=== PATIENT | female | born 1965 | race Caucasian/White ===

== ENCOUNTER 2021-06-13 16:58 | Emergency (ER) | payer OTHER ==
[~2021-06-13] VITALS: Ht 154.9 cm; Wt 57.1 kg
--- OUTSIDE RECORDS SUMMARY | 2021-06-13 17:03 | CCD ---
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 Name Role Phone Sami Peter DO Unavailable Unavailable Sami Peteron DO Unavailable Unavailable Sami Peteron DO Unavailable Unavailable Sami Peteron DO Unavailable Unavailable Sami Peter Hardy DO Unavailable Unavailable Sami Peter Hardy DO Unavailable Unavailable Sami Peter Hardy DO Unavailable Unavailable Sami Peter Hardy DO Unavailable Unavailable Sami Peter Hardy DO Unavailable Unavailable Sami Peter Hardy DO Unavailable Unavailable PeterSami Hardy DO Unavailable Unavailable PeterSami Hardy DO Unavailable Unavailable PeterSami Hardy DO Unavailable Unavailable Peter B Hardy DO Unavailable Unavailable Hector, H Crystal AVIATION ELECTRONIC WARFARE OPERATOR Unavailable Unavailable Hector, H Crystal AVIATION ELECTRONIC WARFARE OPERATOR Unavailable Unavailable Hector, H Crystal AVIATION ELECTRONIC WARFARE OPERATOR Unavailable Unavailable Hector, H Crystal AVIATION ELECTRONIC WARFARE OPERATOR Unavailable Unavailable Hector, H Crystal AVIATION ELECTRONIC WARFARE OPERATOR Unavailable Unavailable Hector, H Crystal AVIATION ELECTRONIC WARFARE OPERATOR Unavailable Unavailable Hector, H Crystal AVIATION ELECTRONIC WARFARE OPERATOR Unavailable Unavailable Hector, H Crystal AVIATION ELECTRONIC WARFARE OPERATOR Unavailable Unavailable Hector, H Crystal AVIATION ELECTRONIC WARFARE OPERATOR Unavailable Unavailable Hector, H Crystal AVIATION ELECTRONIC WARFARE OPERATOR Unavailable Unavailable Hector, H Crystal AVIATION ELECTRONIC WARFARE OPERATOR Unavailable Unavailable Hector, H Crystal AVIATION ELECTRONIC WARFARE OPERATOR Unavailable Unavailable Hector, H Crystal AVIATION ELECTRONIC WARFARE OPERATOR Unavailable Unavailable Hector, H Crystal AVIATION ELECTRONIC WARFARE OPERATOR Unavailable Unavailable Hector, H Crystal AVIATION ELECTRONIC WARFARE OPERATOR Unavailable Unavailable Hector, H Crystal AVIATION ELECTRONIC WARFARE OPERATOR Unavailable Unavailable Hector, H Crystal AVIATION ELECTRONIC WARFARE OPERATOR Unavailable Unavailable Hector, H Crystal AVIATION ELECTRONIC WARFARE OPERATOR Unavailable Unavailable Hector, H Crystal AVIATION ELECTRONIC WARFARE OPERATOR Unavailable Unavailable Hector, H Crystal AVIATION ELECTRONIC WARFARE OPERATOR Unavailable Unavailable Hector, H Crystal AVIATION ELECTRONIC WARFARE OPERATOR Unavailable Unavailable Hector, H Crystal AVIATION ELECTRONIC WARFARE OPERATOR Unavailable Unavailable Hector, H Crystal AVIATION ELECTRONIC WARFARE OPERATOR Unavailable Unavailable Hector, H Crystal AVIATION ELECTRONIC WARFARE OPERATOR Unavailable Unavailable Hector, H Crystal AVIATION ELECTRONIC WARFARE OPERATOR Unavailable Unavailable Hector, H Crystal AVIATION ELECTRONIC WARFARE OPERATOR Unavailable Unavailable Hector, H Crystal AVIATION ELECTRONIC WARFARE OPERATOR Unavailable Unavailable Hector, H Crystal AVIATION ELECTRONIC WARFARE OPERATOR Unavailable Unavailable Hector, H Crystal AVIATION ELECTRONIC WARFARE OPERATOR Unavailable Unavailable Hector, H Crystal AVIATION ELECTRONIC WARFARE OPERATOR Unavailable Unavailable Hector, H Crystal AVIATION ELECTRONIC WARFARE OPERATOR Unavailable Unavailable Hector, H Crystal AVIATION ELECTRONIC WARFARE OPERATOR Unavailable Unavailable Hector, H Crystal AVIATION ELECTRONIC WARFARE OPERATOR Unavailable Unavailable Hector, H Crystal AVIATION ELECTRONIC WARFARE OPERATOR Unavailable Unavailable Hector, H Crystal AVIATION ELECTRONIC WARFARE OPERATOR Unavailable Unavailable Hector, H Crystal AVIATION ELECTRONIC WARFARE OPERATOR Unavailable Unavailable Hector, H Crystal AVIATION ELECTRONIC WARFARE OPERATOR Unavailable Unavailable Hector, H Crystal AVIATION ELECTRONIC WARFARE OPERATOR Unavailable Unavailable Hector, H Crystal AVIATION ELECTRONIC WARFARE OPERATOR Unavailable Unavailable Hector, H Crystal AVIATION ELECTRONIC WARFARE OPERATOR Unavailable Unavailable Hector, H Crystal AVIATION ELECTRONIC WARFARE OPERATOR Unavailable Unavailable Hector, H Crystal AVIATION ELECTRONIC WARFARE OPERATOR Unavailable Unavailable Hector, H Crystal AVIATION ELECTRONIC WARFARE OPERATOR Unavailable Unavailable Hector, H Crystal AVIATION ELECTRONIC WARFARE OPERATOR Unavailable Unavailable Hector, H Crystal AVIATION ELECTRONIC WARFARE OPERATOR Unavailable Unavailable Hector, H Crystal AVIATION ELECTRONIC WARFARE OPERATOR Unavailable Unavailable Hector, H Crystal AVIATION ELECTRONIC WARFARE OPERATOR Unavailable Unavailable Hector, H Crystal AVIATION ELECTRONIC WARFARE OPERATOR Unavailable Unavailable Hector, H Crystal AVIATION ELECTRONIC WARFARE OPERATOR Unavailable Unavailable Hector, H Crystal AVIATION ELECTRONIC WARFARE OPERATOR Unavailable Unavailable Hector, H Crystal AVIATION ELECTRONIC WARFARE OPERATOR Unavailable Unavailable Hector, H Crystal AVIATION ELECTRONIC WARFARE OPERATOR Unavailable Unavailable Hector, H Crystal AVIATION ELECTRONIC WARFARE OPERATOR Unavailable Unavailable Hector, H Crystal AVIATION ELECTRONIC WARFARE OPERATOR Unavailable Unavailable Hector, H Crystal AVIATION ELECTRONIC WARFARE OPERATOR Unavailable Unavailable Hector, H Crystal AVIATION ELECTRONIC WARFARE OPERATOR Unavailable Unavailable Hector, H Crystal AVIATION ELECTRONIC WARFARE OPERATOR Unavailable Unavailable Hector, H Crystal AVIATION ELECTRONIC WARFARE OPERATOR Unavailable Unavailable Hector, H Crystal AVIATION ELECTRONIC WARFARE OPERATOR Unavailable Unavailable Ramon Mann MD Unavailable Unavailable Ramon Mann MD Unavailable Unavailable Ramon Mann MD Unavailable Unavailable Ramon Mann MD Unavailable Unavailable Ramon Mann MD Unavailable Unavailable Ramon Mann MD Unavailable Unavailable Ramon Mann MD Unavailable Unavailable Ramon Mann MD Unavailable Unavailable Ramon Mann MD Unavailable Unavailable Ramon Mann MD Unavailable Unavailable Ramon Mann MD Unavailable Unavailable Ramon Mann MD Unavailable Unavailable Ramon Mann MD Unavailable Unavailable Ramon Mann MD Unavailable Unavailable Ramon Mann MD Unavailable Unavailable Ramon Mann MD Unavailable Unavailable Ramon Mann MD Unavailable Unavailable Ramon Mann MD Unavailable Unavailable Ramon Mann MD Unavailable Unavailable Ramon Mann MD Unavailable Unavailable Ramon Mann MD Unavailable Unavailable Ramon Mann MD Unavailable Unavailable Ramon Mann MD Unavailable Unavailable Ramon Mann MD Unavailable Unavailable Ramon Mann MD Unavailable Unavailable Ramon Mann MD Unavailable Unavailable Ramon Mann MD Unavailable Unavailable Ramon Mann MD Unavailable Unavailable Ramon Mann MD Unavailable Unavailable Ramon Mann MD Unavailable Unavailable Ramon Mann MD Unavailable Unavailable Ramon Mann MD Unavailable Unavailable Ramon Mann MD Unavailable Unavailable Ramon Mann MD Unavailable Unavailable Ramon Mann MD Unavailable Unavailable Ramon Mann MD Unavailable Unavailable Ramon Mann MD Unavailable Unavailable Ramon Mann MD Unavailable Unavailable Ramon Mann MD Unavailable Unavailable Ramon Mann MD Unavailable Unavailable Ramon Mann MD Unavailable Unavailable Ramon Mann MD Unavailable Unavailable Ramon Mann MD Unavailable Unavailable Ramon Mann MD Unavailable Unavailable Ramon Mann MD Unavailable Unavailable Ramon Mann MD Unavailable Unavailable Ramon Mann MD Unavailable Unavailable Ramon Mann MD Unavailable Unavailable Ramon Mann MD Unavailable Unavailable Ramon Mann MD Unavailable Unavailable Ramon Mann MD Unavailable Unavailable Ramon Mann MD Unavailable Unavailable Ramon Mann MD Unavailable Unavailable Ramon Mann MD Unavailable Unavailable Ramon Mann MD Unavailable Unavailable Ramon Mann MD Unavailable Unavailable Ramon Mann MD Unavailable Unavailable Ramon Mann MD Unavailable Unavailable Ramon Mann MD Unavailable Unavailable Ramon Mann MD Unavailable Unavailable Ramon Mann MD Unavailable Unavailable Ramon Mann MD Unavailable Unavailable Ramon Mann MD Unavailable Unavailable Ramon Mann MD Unavailable Unavailable Ramon Mann MD Unavailable Unavailable Ramon Mann MD Unavailable Unavailable Ramon Mann MD Unavailable Unavailable Ramon Mann MD Unavailable Unavailable Ramon Mann MD Unavailable Unavailable Ramon Mann MD Unavailable Unavailable Ramon Mann MD Unavailable Unavailable Ramon Mann MD Unavailable Unavailable Ramon Mann MD Unavailable Unavailable Ramon Mann MD Unavailable Unavailable Ramon Mann MD Unavailable Unavailable Ramon Mann MD Unavailable Unavailable Ramon Mann MD Unavailable Unavailable Ramon Mann MD Unavailable Unavailable Ramon Mann MD Unavailable Unavailable Ramon Mann MD Unavailable Unavailable Ramon Mann MD Unavailable Unavailable Ramon Mann MD Unavailable Unavailable Ramon Mann MD Unavailable Unavailable Ramon Mann MD Unavailable Unavailable Ramon Mann MD Unavailable Unavailable Ramon Mann MD Unavailable Unavailable Ramon Mann MD Unavailable Unavailable Ramon Mann MD Unavailable Unavailable Ramon Mann MD Unavailable Unavailable Ramon Mann MD Unavailable Unavailable Ramon Mann MD Unavailable Unavailable Ramon Mann MD Unavailable Unavailable Ramon Mann MD Unavailable Unavailable Doctor Provided, Family PHYS No Family Unavailable U navailable Artur, Jeannine AVIATION ELECTRONIC WARFARE OPERATOR Unavailable Unavailable Artur, Jeannine AVIATION ELECTRONIC WARFARE OPERATOR Unavailable Unavailable Artur, Jeannine AVIATION ELECTRONIC WARFARE OPERATOR Unavailable Unavailable Artur, Jeannine AVIATION ELECTRONIC WARFARE OPERATOR Unavailable Unavailable Artur, Jeannine AVIATION ELECTRONIC WARFARE OPERATOR Unavailable Unavailable Artur, Jeannine AVIATION ELECTRONIC WARFARE OPERATOR Unavailable Unavailable Artur, Jeannine AVIATION ELECTRONIC WARFARE OPERATOR Unavailable Unavailable Artur, Jeannine AVIATION ELECTRONIC WARFARE OPERATOR Unavailable Unavailable Artur, Jeannine AVIATION ELECTRONIC WARFARE OPERATOR Unavailable Unavailable Artur, Jeannine AVIATION ELECTRONIC WARFARE OPERATOR Unavailable Unavailable Artur, Jeannine AVIATION ELECTRONIC WARFARE OPERATOR Unavailable Unavailable Artur, Jeannine AVIATION ELECTRONIC WARFARE OPERATOR Unavailable Unavailable CAROLINE DAVIS MD Unavailable Unavailable CAROLINE DAVIS MD Unavailable Unavailable CAROLINE DAVIS MD Unavailable Unavailable CAROLINE DAVIS MD Unavailable Unavailable CAROLINE DAVIS MD Unavailable Unavailable CAROLINE DAVIS MD Unavailable Unavailable CAROLINE DAVIS MD Unavailable Unavailable CAROLINE DAVIS MD Unavailable Unavailable CAROLINE DAVIS MD Unavailable Unavailable CAROLINE DAVIS MD Unavailable Unavailable CAROLINE DAVIS MD Unavailable Unavailable CAROLINE DAVIS MD Unavailable Unavailable MAURICIO LOMAX MD Unavailable Unavailable AMURICIO LOMAX MD Unavailable Unavailable MAURICIO LOMAX MD Unavailable Unavailable JEFFREYMAURICIO MD Unavailable Unavailable MAURICIO LOMAX MD Unavailable Unavailable MAURICIO LOMAX MD Unavailable Unavailable MAURICIO LOMAX MD Unavailable Unavailable MAURICIO LOMAX MD Unavailable Unavailable MAURICIO LOMAX MD Unavailable Unavailable MAURICIO LOMAX MD Unavailable Unavailable MAURICIO LOMAX MD Unavailable Unavailable MAURICIO LOMAX MD Unavailable Unavailable MAURICIO LOMAX MD Unavailable Unavailable MAURICIO LOMAX MD Unavailable Unavailable MAURICIO LOMAX MD Unavailable Unavailable MAURICIO LOMAX MD Unavailable Unavailable MAURICIO LOMAX MD Unavailable Unavailable MAURICIO LOMAX MD Unavailable Unavailable MAURICIO LOMAX MD Unavailable Unavailable MAURICIO LOMAX MD Unavailable Unavailable MAURICIO LOMAX MD Unavailable Unavailable MAURICIO LOMAX MD Unavailable Unavailable MAURICIO LOMAX MD Unavailable Unavailable MAURICIO LOMAX MD Unavailable Unavailable MAURICIO LOMAX MD Unavailable Unavailable MAURICIO LOMAX MD Unavailable Unavailable MAURICIO LOMAX MD Unavailable Unavailable MAURICIO LOMAX MD Unavailable Unavailable MAURICIO LOMAX MD Unavailable Unavailable MAURICIO LOMAX MD Unavailable Unavailable MAURICIO LOMAX MD Unavailable Unavailable MAURICIO LOMAX MD Unavailable Unavailable MAURICIO LOMAX MD Unavailable Unavailable MAURICIO LOMAX MD Unavailable Unavailable MAURICIO LOMAX MD Unavailable Unavailable MAURICIO LOMAX MD Unavailable Unavailable MAURICIO LOMAX MD Unavailable Unavailable MAURICIO LOMAX MD Unavailable Unavailable MAURICIO LOMAX MD Unavailable Unavailable MAURICIO LOMAX MD Unavailable Unavailable MAURICIO LOMAX MD Unavailable Unavailable MAURICIO LOMAX MD Unavailable Unavailable MAURICIO LOMAX MD Unavailable Unavailable MAURICIO LOMAX MD Unavailable Unavailable MAURICIO LOMAX MD Unavailable Unavailable MAURICIO LOMAX MD Unavailable Unavailable MAURICIO LOMAX MD Unavailable Unavailable MAURICIO LOMAX MD Unavailable Unavailable JEFFREY, MAURICIO MD Unavailable Unavailable JEFFREY, MAURICIO MD Unavailable Unavailable JEFFREY, MAURICIO MD Unavailable Unavailable JEFFREY, MAURICIO MD Unavailable Unavailable JEFFREY, MAURICIO MD Unavailable Unavailable JEFFREY, MAURICIO MD Unavailable Unavailable JEFFREY, MAURICIO MD Unavailable Unavailable JEFFREY, MAURICIO MD Unavailable Unavailable JEFFREY, MAURICIO MD Unavailable Unavailable JEFFREY, MAURICIO MD Unavailable Unavailable JEFFREY, MAURICIO MD Unavailable Unavailable JEFFREY, MAURICIO MD Unavailable Unavailable JEFFREY, MAURICIO MD Unavailable Unavailable JEFFREY, MAURICIO MD Unavailable Unavailable JEFFREY, MAURICIO MD Unavailable Unavailable [facility], YCHANG Unavailable Unavailable Re-disclosure Warning The records that you are about to access may contain information from federally-assisted alcohol or drug abuse programs. If such information is present, then the following federally mandated warning applies: This information has been disclosed to you from records protected by federal confidentiality rules (42 CFR part 2). The federal rules prohibit you from making any further disclosure of this information unless further disclosure is expressly permitted by the written consent of the person to whom it pertains or as otherwise permitted by 42 CFR part 2. A general authorization for the release of medical or other information is NOT sufficient for this purpose. The Federal rules restrict any use of the information to criminally investigate or prosecute any alcohol or drug abuse patient.The records that you are about to access may contain highly sensitive health information, the redisclosure of which is protected by Article 27-F of the [facility] Public Health law. If you continue you may have access to information: Regarding HIV / AIDS; Provided by facilities licensed or operated by the [facility] Office of Mental Health; or Provided by the [facility] Office for People With Developmental Disabilities. If such information is present, then the following [facility] mandated warning applies: This information has been disclosed to you from confidential records which are protected by state law. State law prohibits you from making any further disclosure of this information without the specific written consent of the person to whom it pertains, or as otherwise permitted by law. Any unauthorized further disclosure in violation of state law may result in a fine or retirement sentence or both. A general authorization for the release of medical or other information is NOT sufficient authorization for further disc losure. Allergies and Adverse Reactions Type Description Substance Reaction Status Data Source(s ) Food allergy egg egg GI Upset SV [facility] Drug allergy penicillin G Penicillin G YEAST,MOUTH AND EAR INFECTIONS [facility] Drug allergy tramadol Tramadol HEART RACES AND KEEPS HER UP ALL N IGHT [facility] Drug allergy Iodinated Contrast Media Iodinated Contrast Medi a Nausea/Vomit/Gastric [facility] SURGICAL TAPE SURGICAL TAPE SKIN RASH WITH IV T APE MO [facility] Family History Family Member Name Family Member Gender Family Member Status Date o f Status Description Data Source(s) Unknown Condition [facility] Hospital Unknown Condition [facility] Hospital Unknown Condition [facility] Hospital Unknown Condition [facility] Unknown Condition [facility] Unknown Condition [facility] Unknown Condition [facility] Unknown Condition [facility] Unknown Condition [facility] Unknown Condition [facility] Unknown Condition [facility] Unknown Condition [facility] Unknown Condition [facility] Unknown Condition [facility] Unknown Condition [facility] Unknown Condition [facility] Unknown Condition [facility] Unknown Condition [facility] Unknown Condition [facility] Unknown Condition [facility] Unknown Condition [facility] Unknown Condition [facility] Unknown Condition [facility] Unknown Condition [facility] Hospital Unknown Condition [facility] Hospital Unknown Condition [facility] Hospital Unknown Condition [facility] Hospital Encounters Encounter Providers Location Date Indications Data Source(s ) Preadmit Attender: CAROLINE DAVIS MD 05/29/2021 12:00 :00 AM EDT FOLLOW-UP [facility] FOLLOW-UP Outpatient Attender: CAROLINE DAVIS MD 04/16/2021 03:20:00 PM EDT FOLLOW UP [facility] FOLLOW UP Outpatient Attender: CAROLINE DAVIS MDReferrer: No Famil y Doctor Provided 04/16/2021 01:48:00 PM EDT [facility] Preadmit Attender: CAROLINE DAVIS MD 02/27/2021 12:00 :00 AM EDT FOLLOW-UP [facility] FOLLOW-UP Outpatient Attender: MAURICIO LOMAX MDReferrer: MAURICIO LOMAX MD 01/16/2021 11:22:00 AM EDT - 01/16/2021 12:16:00 PM EDT [facility] Preadmit Attender: CAROLINE DAVIS MD 01/15/2021 12:00 :00 AM EDT FOLLOW-UP [facility] FOLLOW-UP Emergency Attender: Hardy Rome VAZ 12/30 09:13:00 PM EDT - 01/10/2021 09:38:00 PM EDT BURN [facility] BURN Patient discharged. Outpatient Attender: CAROLINE DAVIS MDReferrer: Crystal Snyder NP 12/12/2020 11:31:00 AM EDT [facility] Outpatient Attender: CAROLINE DAVIS MD 12/12/2020 12:00:00 AM EDT FOLLOW UP [facility] FOLLOW UP Outpatient Attender: CAROLINE DAVIS MD 12/11/2020 01:38:00 PM EDT Z51.81,CERVICALGIA [facility] Z51.81,CERVICALGIA Outpatient Attender: CAROLINE DAVIS MD 12/04/2020 05:12 :00 PM EDT Z13.89 [facility] Z13.89 Outpatient Attender: CAROLINE DAVIS MDReferrer: Crystal Snyder NP 12/04/2020 02:07:00 PM EDT [facility] Outpatient Attender: CAROLINE DAVIS MD 12/04/2020 12:00:00 AM EDT FOLLOW-UP [facility] FOLLOW-UP Outpatient Attender: CAROLINE DAVIS MDReferrer: Jeannine Siddiqui NP 10/17/2020 02:06:00 PM EST [facility] Outpatient Attender: CAROLINE DAVIS MD 10/17/2020 12:00:00 AM EST FOLLOW UP [facility] FOLLOW UP Outpatient Attender: CAROLINE DAVIS MD 08/08/2020 04:31 :00 PM EST Z13.89 [facility] Z13.89 Outpatient Attender: CAROLINE DAVIS MDReferrer: Jeannine Siddiqui NP 08/08/2020 03:13:00 PM EST [facility] Att[facility]: CAROLINE DAVIS MD 08/08/2020 12:00:00 AM EST FOLLOW UP [facility] FOLLOW UP Preadmit Attender: CAROLINE DAVIS MD 07/25/2020 12:00 :00 AM EST FOLLOW UP [facility] FOLLOW UP Outpatient Attender: YCHANG [facility] 07/11/2020 12:00:41 AM ES [facility] Outpatient Attender: Jeannine Siddiqui NPReferrer: Crystal Young NP 06/20/2020 02:06:00 PM EDT - 06/20/2020 03:36:00 PM EDT [facility] Outpatient Attender: YCDOUGLAS [facility] 06/08/2020 12:00:20 AM ED T [facility] Outpatient Attender: YCDOUGLAS [facility] 05/11/2020 12:00:37 AM ED T [facility] Outpatient Attender: CAROLINE DAVIS MDAttender: Wu Skinner MD 12/07/2019 10:28:00 AM EDT RE [facility] Medications Medication Brand Name Start Date Product Form Dose Route Admi nistrative Instructions Pharmacy Instructions Status Indications Reaction Description Data Source(s) 5-325 mg 06/05/2021 12:00:00 AM EDT tablet 28 TAKE ONE TABLET BY MOUTH EVERY 6 HOURS NEEDED FOR PAIN (SCALE SCORE 7-10) MAXIMUM DAILY DOSE = FOUR TABLETS TAKE ONE TABLET BY MOUTH EVERY 6 HOURS NEEDED FOR PAIN (SCALE SCORE 7-10) MAXIMUM DAILY DOSE = FOUR TABLETS SOLD: 06/05/2021 [facility] 10 mg 06/05/2021 12:00:00 AM EDT tablet 30 TAKE ONE TABLET BY MOUTH EVERY DAY NEEDED MAXIMUM DAILY DOSE = ONE TABLET TAKE ONE TABLET BY MOUTH EVERY DAY NEEDED MAXIMUM DAILY DOSE = ONE TABLET SOLD: 06/05/2021 [facility] Amphetamine aspartate 7.5 MG / Amphetami ne Sulfate 7.5 MG / Dextroamphetamine saccharate 7.5 MG / Dextroamphetamine Sulfate 7.5 MG Oral Tablet 30 mg DEXTROAMPHETAMINE/AMPHETAMINE 06/05/2021 12:00:00 AM EDT tablet 30 TAKE ONE TABLET BY MOUTH EVERY DAY IN THE AFTERNOON MAXIMUM DAILY DOSE = ONE TABLET TAKE ONE TABLET BY MOUTH EVERY DAY IN THE AFTERNOON MAXIMUM DAILY DOSE = ONE TABLET SOLD: 06/05/2021 [facility] 5-325 mg 05/29/2021 12:00:00 AM EDT tablet 28 TAKE ONE TABLET BY MOUTH EVERY 6 HOURS NEEDED FOR PAIN (SCALE SCORE 7-10) MAXIMUM DAILY DOSE = FOUR TABLETS TAKE ONE TABLET BY MOUTH EVERY 6 HOURS NEEDED FOR PAIN (SCALE SCORE 7-10) MAXIMUM DAILY DOSE = FOUR TABLETS SOLD: 05/30/2021 [facility] 5-325 mg 05/23/2021 12:00:00 AM EDT tablet 28 TAKE ONE TABLET BY MOUTH EVERY 6 HOURS NEEDED FOR PAIN (SCALE SCORE OF 7-10) MAXIMUM DAILY DOSE = FOUR TABLETS TAKE ONE TABLET BY MOUTH EVERY 6 HOURS A S NEEDED FOR PAIN (SCALE SCORE OF 7-10) MAXIMUM DAILY DOSE = FOUR TABLETS SOLD: 05/23/2021 [facility] 5-325 mg 05/16/2021 12:00:00 AM EDT tablet 28 TAKE ONE TABLET BY MOUTH EVERY 6 HOURS NEEDED FOR PAIN ( SCALE SCORE 7-10) MAXIMUM DAILY DOSE = 4 TABLETS TAKE ONE TABLET BY MOUTH EVERY 6 HOURS NEEDED FOR PAIN ( SCALE SCORE 7-10) MAXIMUM DAILY DOSE = 4 TABLETS SOLD: 05/17/2021 [facility] quetiapine 200 MG Oral Tablet QUETIAPINE FUMARATE 05/15/2021 12: 00:00 AM EDT tablet 60 TAKE TWO TABLETS BY MOUTH EVERY DAY AT BEDTIME NEEDED TAKE TWO TABLETS BY MOUTH EVERY DAY AT BEDTIME NEEDED SOLD: 05/15/2021 [facility] 24 HR Amphetamine aspartate 7.5 MG / Amp hetamine Sulfate 7.5 MG / Dextroamphetamine saccharate 7.5 MG / Dextroamphetamine Sulfate 7.5 MG Extended Release Oral Capsule 30 mg DEXTROAMPHETAMINE/AMPHETAMINE 05/15/2021 12:00:00 AM EDT capsule,extended release 24hr 30 TA KE ONE CAPSULE BY MOUTH EVERY DAY MAXIMUM DAILY DOSE = 1 CAPSULE TAKE ONE CAPSULE BY MOUTH EVERY DAY MAXI MUM DAILY DOSE = 1 CAPSULE SOLD: 05/15/2021 [facility] 2 mg 05/15/2021 12:00:00 AM EDT capsule 30 TAKE ONE CAPSULE BY MOUTH EVERY DAY AT BEDTIME TAKE ONE CAPSULE BY MOUTH EVERY DAY AT BEDTIME SOLD: 021 [facility] 10 mg 04/26/2021 12:00:00 AM EDT tablet 30 TAKE ONE TABLET BY MOUTH EVERY DAY NEEDED MAXIMUM DAILY DOSE = 1 TABLET TAKE ONE TABLET BY MOUTH EVERY DAY NEEDED MAXIMUM DAILY DOSE = 1 TABLET SOLD: 05/03/2021 [facility] 30 mg 04/25/2021 12:00:00 AM EDT tablet 30 TAKE 1 TABLET BY MOUTH ONCE DAILY IN THE AFTERNOON MAXIMUM DAILY DOSE = 1 TABLET TAKE 1 TABLET BY MOUTH ONCE DAILY IN THE AFTERNOON MAXIMUM DAILY DOSE = 1 TABLET SOLD: 05/03/2021 [facility] Acetaminophen 325 MG / Oxycodone Hydroch loride 5 MG Oral Tablet Oxycodone- Acetaminophen (Percocet) 5-325 mg tablet Oxycodone-Acetaminophen (Percocet) 5- 325 mg tablet 04/16/2021 04:36:55 PM EDT 1 TAB active [facility] 24 HR Amphetamine aspartate 7.5 MG / Amp hetamine Sulfate 7.5 MG / Dextroamphetamine saccharate 7.5 MG / Dextroamphetamine Sulfate 7.5 MG Extended Release Oral Capsule 30 mg DEXTROAMPHETAMINE/AMPHETAMINE 04/16/2021 12:00:00 AM EDT capsule,extended release 24hr 30 TA KE ONE CAPSULE BY MOUTH EVERY DAY MAXIMUM DAILY DOSE = 1 CAPSULE TAKE ONE CAPSULE BY MOUTH EVERY DAY MAXI MUM DAILY DOSE = 1 CAPSULE SOLD: 04/16/2021 [facility] 5-325 mg 04/16/2021 12:00:00 AM EDT tablet 120 TAKE 1 TABLET BY MOUTH EVERY 6 HOURS NEEDED FOR PAIN (SCALE SCORE 7 TO 10) MAXIMUM DAILY DOSE = 4 TAKE 1 TABLET BY MOUTH EVERY 6 HOURS NEEDED FOR PAIN (SCALE SCORE 7 TO 10) MAXIMUM DAILY DOSE = 4 SOLD: 04/17/2021 [facility] 30 mg 03/26/2021 12:00:00 AM EDT tablet 30 TAKE ONE TABLET BY MOUTH EVERY DAY IN THE AFTERNOON MAXIMUM DAILY DOSE = 1 TAKE ONE TABLET BY MOUTH EVERY DAY IN THE AFTERNOON MAXIMUM DAILY DOSE = 1 SOLD: 03/27/2021 [facility] 10 mg 03/15/2021 12:00:00 AM EDT tablet 30 TAKE ONE TABLET BY MOUTH EVERY DAY NEEDED MAXIMUM DAILY DOSE = ONE TABLET TAKE ONE TABLET BY MOUTH EVERY DAY NEEDED MAXIMUM DAILY DOSE = ONE TABLET SOLD: 03/16/2021 [facility] 24 HR Amphetamine aspartate 7.5 MG / Amp hetamine Sulfate 7.5 MG / Dextroamphetamine saccharate 7.5 MG / Dextroamphetamine Sulfate 7.5 MG Extended Release Oral Capsule 30 mg DEXTROAMPHETAMINE/AMPHETAMINE 03/15/2021 12:00:00 AM EDT capsule,extended release 24hr 30 TA KE ONE CAPSULE BY MOUTH EVERY DAY MAXIMUM DAILY DOSE = ONE CAPSULE TAKE ONE CAPSULE BY MOUTH EVERY DAY MAXI MUM DAILY DOSE = ONE CAPSULE SOLD: 03/16/2021 [facility] 5-325 mg 03/15/2021 12:00:00 AM EDT tablet 120 TAKE ONE TABLET BY MOUTH EVERY 6 HOURS NEEDED FOR PAIN (SCALE SCORE OF 7-10) MAXIMUM DAILY DOSE = FOUR TABLETS TAKE ONE TABLET BY MOUTH EVERY 6 HOURS A S NEEDED FOR PAIN (SCALE SCORE OF 7-10) MAXIMUM DAILY DOSE = FOUR TABLETS SOLD: 03/16/2021 [facility] Acetaminophen 325 MG / Oxycodone Hydroch loride 5 MG Oral Tablet Oxycodone- Acetaminophen (Percocet) 5-325 mg tablet Oxycodone-Acetaminophen (Percocet) 5- 325 mg tablet 03/13/2021 09:05:53 AM EDT 1 TAB completed [facility] 30 mg 02/16/2021 12:00:00 AM EDT tablet 30 TAKE ONE TABLET BY MOUTH EVERY DAY IN THE AFTERNOON MAXIMUM DAILY DOSE = ONE TABLET TAKE ONE TABLET BY MOUTH EVERY DAY IN THE AFTERNOON MAXIMUM DAILY DOSE = ONE TABLET SOLD: 02/22/2021 [facility] Acetaminophen 325 MG / Oxycodone Hydroch loride 5 MG Oral Tablet Oxycodone- Acetaminophen (Percocet) 5-325 mg tablet Oxycodone-Acetaminophen (Percocet) 5- 325 mg tablet 02/13/2021 04:10:43 PM EDT 1 TAB completed [facility] 24 HR Amphetamine aspartate 7.5 MG / Amp hetamine Sulfate 7.5 MG / Dextroamphetamine saccharate 7.5 MG / Dextroamphetamine Sulfate 7.5 MG Extended Release Oral Capsule 30 mg DEXTROAMPHETAMINE/AMPHETAMINE 02/13/2021 12:00:00 AM EDT capsule,extended release 24hr 30 TA KE ONE CAPSULE BY MOUTH EVERY DAY MAXIMUM DAILY DOSE = 1 CAPSULE TAKE ONE CAPSULE BY MOUTH EVERY DAY MAXI MUM DAILY DOSE = 1 CAPSULE SOLD: 02/14/2021 [facility] 10 mg 02/13/2021 12:00:00 AM EDT tablet 30 TAKE ONE TABLET BY MOUTH EVERY DAY NEEDED MAXIMUM DAILY DOSE = 1 TABLET TAKE ONE TABLET BY MOUTH EVERY DAY NEEDED MAXIMUM DAILY DOSE = 1 TABLET SOLD: 02/14/2021 [facility] 5-325 mg 02/13/2021 12:00:00 AM EDT tablet 120 TAKE ONE TABLET BY MOUTH EVERY 6 HOURS NEEDED FOR PAIN (SCALE SCORE 7-10) MAXIMUM DAILY DOSE = FOUR TABLETS TAKE ONE TABLET BY MOUTH EVERY 6 HOURS A S NEEDED FOR PAIN (SCALE SCORE 7-10) MAXIMUM DAILY DOSE = FOUR TABLETS SOLD: 02/14/2021 [facility] 2 mg 02/12/2021 12:00:00 AM EDT capsule 30 TAKE ONE CAPSULE BY MOUTH AT BEDTIME TAKE ONE CAPSULE BY MOUTH AT BEDTIME SOLD: 02/12/2021 [facility] quetiapine 200 MG Oral Tablet QUETIAPINE FUMARATE 02/12/2021 12: 00:00 AM EDT tablet 60 TAKE TWO TABLETS BY MOUTH AT BED TIME NEEDED TAKE TWO TABLETS BY MOUTH AT BEDTIME NEEDED SOLD: 03/16/2021 [facility] 2 mg 02/12/2021 12:00:00 AM EDT capsule 30 TAKE ONE CAPSULE BY MOUTH AT BEDTIME TAKE ONE CAPSULE BY MOUTH AT BEDTIME SOLD: 03/16/2021 [facility] quetiapine 200 MG Oral Tablet QUETIAPINE FUMARATE 02/12/2021 12: 00:00 AM EDT tablet 60 TAKE TWO TABLETS BY MOUTH AT BED TIME NEEDED TAKE TWO TABLETS BY MOUTH AT BEDTIME NEEDED SOLD: 02/12/2021 [facility] 10 mg 02/03/2021 12:00:00 AM EDT tablet 30 TAKE ONE TABLET BY MOUTH AT BEDTIME NEEDED FOR SLEEP MAXIMUM DAILY DOSE = ONE TABLET TAKE ONE TABLET BY MOUTH AT BEDTIME NEEDED FOR SLEEP MAXIMUM DAILY DOSE = ONE TABLET SOLD: 05/05/2021 [facility] 10 mg 02/03/2021 12:00:00 AM EDT tablet 30 TAKE ONE TABLET BY MOUTH AT BEDTIME NEEDED FOR SLEEP MAXIMUM DAILY DOSE = ONE TABLET TAKE ONE TABLET BY MOUTH AT BEDTIME NEEDED FOR SLEEP MAXIMUM DAILY DOSE = ONE TABLET SOLD: 03/16/2021 [facility] 10 mg 02/03/2021 12:00:00 AM EDT tablet 30 TAKE ONE TABLET BY MOUTH AT BEDTIME NEEDED FOR SLEEP MAXIMUM DAILY DOSE = ONE TABLET TAKE ONE TABLET BY MOUTH AT BEDTIME NEEDED FOR SLEEP MAXIMUM DAILY DOSE = ONE TABLET SOLD: 02/09/2021 [facility] 1 mg 01/23/2021 12:00:00 AM EDT capsule 30 TAKE ONE CAPSULE BY MOUTH AT BEDTIME TAKE ONE CAPSULE BY MOUTH AT BEDTIME SOLD: 01/24/2021 [facility] 1 % 01/22/2021 12:00:00 AM EDT cream 85 APPLY A 1.5MM THICKNESS DAILY FOR SECOND DEGREE BURN APPLY A 1.5MM THICKNESS DAILY FOR SECOND DEGREE BURN S OLD: 01/22/2021 [facility] quetiapine 100 MG Oral Tablet QUETIAPINE FUMARATE 01/19/2021 12: 00:00 AM EDT tablet 60 TAKE TWO TABLETS BY MOUTH NIGHTL Y NEEDED TAKE TWO TABLETS BY MOUTH NIGHTLY NEEDED SOLD: 03/27/2021 [facility] quetiapine 100 MG Oral Tablet QUETIAPINE FUMARATE 01/19/2021 12: 00:00 AM EDT tablet 60 TAKE TWO TABLETS BY MOUTH NIGHTL Y NEEDED TAKE TWO TABLETS BY MOUTH NIGHTLY NEEDED SOLD: 02/22/2021 [facility] quetiapine 100 MG Oral Tablet QUETIAPINE FUMARATE 01/19/2021 12: 00:00 AM EDT tablet 60 TAKE TWO TABLETS BY MOUTH NIGHTL Y NEEDED TAKE TWO TABLETS BY MOUTH NIGHTLY NEEDED SOLD: 01/22/2021 [facility] silver sulfadiazine 10 MG/ML Topical Cre am Silver Sulfadiazine (Silvadene) 1 % cream Silver Sulfadiazine (Silvadene) 1 % cream 01/16/2021 05:10:18 PM EDT 1 APPLIC active [facility] silver sulfadiazine 10 MG/ML Topical Cream [SSD] SILVER SULF ADIAZINE 01/16/2021 12:00:00 AM EDT cream 50 APPLY 1 APPLICAT ION OF 1.5MM THICKNESS TOPICALLY DAILY FOR SECOND DEGREE BURN APPLY 1 APPLICATION OF 1.5MM THICKNESS T OPICALLY DAILY FOR SECOND DEGREE BURN SOLD: 01/16/2021 [facility] sulfadiazine 10 MG/ML Topical Cre am Silver Sulfadiazine (Silvadene) 1 % cream Silver Sulfadiazine (Silvadene) 1 % cream 01/15/2021 05:05:14 PM EDT 1 APPLIC completed [facility] silver sulfadiazine 10 MG/ML Topical Cre am Silver Sulfadiazine (Silvadene) 1 % cream Silver Sulfadiazine (Silvadene) 1 % cream 01/15/2021 03:20:04 PM EDT 1 APPLIC completed [facility] Acetaminophen 325 MG / Oxycodone Hydroch loride 5 MG Oral Tablet Oxycodone- Acetaminophen (Percocet) 5-325 mg tablet Oxycodone-Acetaminophen (Percocet) 5- 325 mg tablet 01/15/2021 08:10:44 AM EDT 1 TAB completed [facility] 5-325 mg 01/15/2021 12:00:00 AM EDT tablet 120 TAKE ONE TABLET BY MOUTH EVERY 6 HOURS NEEDED FOR PAIN (SCALE SCORE 7-10) MAXIMUM DAILY DOSE = FOUR TABLETS TAKE ONE TABLET BY MOUTH EVERY 6 HOURS A S NEEDED FOR PAIN (SCALE SCORE 7-10) MAXIMUM DAILY DOSE = FOUR TABLETS SOLD: 01/15/2021 [facility] 10 mg 01/15/2021 12:00:00 AM EDT tablet 30 TAKE ONE TABLET BY MOUTH EVERY DAY NEEDED MAXIMUM DAILY DOSE = ONE TABLET TAKE ONE TABLET BY MOUTH EVERY DAY NEEDED MAXIMUM DAILY DOSE = ONE TABLET SOLD: 01/15/2021 [facility] 30 mg 01/15/2021 12:00:00 AM EDT tablet 30 TAKE ONE TABLET BY MOUTH EVERY DAY IN THE AFTERNOON MAXIMUM DAILY DOSE = 1 TABLET TAKE ONE TABLET BY MOUTH EVERY DAY IN THE AFTERNOON MAXIMUM DAILY DOSE = 1 TABLET SOLD: 01/15/2021 [facility] 24 HR Amphetamine aspartate 7.5 MG / Amp hetamine Sulfate 7.5 MG / Dextroamphetamine saccharate 7.5 MG / Dextroamphetamine Sulfate 7.5 MG Extended Release Oral Capsule 30 mg DEXTROAMPHETAMINE/AMPHETAMINE 01/15/2021 12:00:00 AM EDT capsule,extended release 24hr 30 TA KE ONE CAPSULE BY MOUTH ONCE DAILY MAXIMUM DAILY DOSE = 1 CAPSULE TAKE ONE CAPSULE BY MOUTH ONCE DAILY MAX IMUM DAILY DOSE = 1 CAPSULE SOLD: 01/15/2021 [facility] silver sulfadiazine 10 MG/ML Topical Cream [SSD] SILVER SULF ADIAZINE 01/11/2021 12:00:00 AM EDT cream 50 APPLY A 1.5MM THICKNESS T OPICALLY DAILY APPLY A 1.5MM THICKNESS TOPICALLY DAILY SOLD: 01/11/2021 [facility] silver sulfadiazine 10 MG/ML Topical Cre am Silver Sulfadiazine (Silvadene) 1 % cream Silver Sulfadiazine (Silvadene) 1 % cream 01/10/2021 09:29:06 PM EDT 1 APPLIC completed [facility] 24 HR Amphetamine aspartate 7.5 MG / Amp hetamine Sulfate 7.5 MG / Dextroamphetamine saccharate 7.5 MG / Dextroamphetamine Sulfate 7.5 MG Extended Release Oral Capsule 30 mg DEXTROAMPHETAMINE/AMPHETAMINE 12/17/2020 12:00:00 AM EDT capsule,extended release 24hr 30 TA KE ONE CAPSULE BY MOUTH EVERY DAY MAXIMUM DAILY DOSE = 1 CAPSULE TAKE ONE CAPSULE BY MOUTH EVERY DAY MAXI MUM DAILY DOSE = 1 CAPSULE SOLD: 12/18/2020 [facility] Acetaminophen 325 MG / Oxycodone Hydroch loride 10 MG Oral Tablet Oxycodone-Acetaminophen Oxycodone-Acetaminophen 12/12/2020 01:19:27 PM EDT 1 TAB completed [facility] Acetaminophen 325 MG / Oxycodone Hydroch loride 10 MG Oral Tablet Oxycodone-Acetaminophen Oxycodone-Acetaminophen 12/12/2020 01:19:27 PM EDT 1 TAB active [facility] 30 mg 12/12/2020 12:00:00 AM EDT tablet 30 TAKE ONE TABLET BY MOUTH DAILY IN THE AFTERNOON MAXIMUM DAILY DOSE = ONE TABLET TAKE ONE TABLET BY MOUTH DAILY IN THE AFTERNOON MAXIMUM DAILY DOSE = ONE TABLET SOLD: 12/13/2020 [facility] 10 mg 12/12/2020 12:00:00 AM EDT tablet 30 TAKE ONE TABLET BY MOUTH NEEDED MAXIMUM DAILY DOSE = ONE TABLET TAKE ONE TABLET BY MOUTH NEEDED MAXIMUM DAILY DOSE = ONE TABLET SOLD: 12/13/2020 [facility] 10-325 mg 12/12/2020 12:00:00 AM EDT tablet 60 TAKE 1 TABLET BY MOUTH TWICE A DAY NEEDED FOR PAIN (SCALE SCORE 7 TO 10) MAXIMUM DAILY DOSE = 2 TAKE 1 TABLET BY MOUTH TWICE A DAY NEEDED FOR PAIN (SCALE SCORE 7 TO 10) MAXIMUM DAILY DOSE = 2 SOLD: 12/13/2020 [facility] 10 mg 11/18/2020 12:00:00 AM EDT tablet 30 TAKE ONE TABLET BY MOUTH EVERY EVENING AT BEDTIME NEEDED FOR SLEEP MAXIMUM DAILY DOSE = ONE TABLET TAKE ONE TABLET BY MOUTH EVERY EVENING AT BEDTIME NEEDED FOR SLEEP MAXIMUM DAILY DOSE = ONE TABLET SOLD: 11/18/2020 [facility] 10 mg 11/18/2020 12:00:00 AM EDT tablet 30 TAKE ONE TABLET BY MOUTH EVERY EVENING AT BEDTIME NEEDED FOR SLEEP MAXIMUM DAILY DOSE = ONE TABLET TAKE ONE TABLET BY MOUTH EVERY EVENING AT BEDTIME NEEDED FOR SLEEP MAXIMUM DAILY DOSE = ONE TABLET SOLD: 01/05/2021 [facility] 30 mg 11/18/2020 12:00:00 AM EDT capsule,extended releas e 24hr 30 TAKE ONE CAPSULE BY MOUTH EVERY DAY MAXIMUM DAILY DOSE = ONE CAPSULE TAKE ONE CAPSULE BY MOUTH EVERY DAY MAXIMUM DAILY DOSE = ONE CAPSULE SOLD: 11/18/2020 [facility] 5-325 mg 11/15/2020 12:00:00 AM EDT tablet 120 TAKE ONE TABLET BY MOUTH EVERY 6 HOURS NEEDED FOR PAIN (SCALE SCORE 7-10) MAXIMUM DAILY DOSE = FOUR TABLETS TAKE ONE TABLET BY MOUTH EVERY 6 HOURS A S NEEDED FOR PAIN (SCALE SCORE 7-10) MAXIMUM DAILY DOSE = FOUR TABLETS SOLD: 11/15/2020 [facility] Acetaminophen 325 MG / Oxycodone Hydroch loride 5 MG Oral Tablet Oxycodone- Acetaminophen (Percocet) 5-325 mg tablet Oxycodone-Acetaminophen (Percocet) 5- 325 mg tablet 11/14/2020 07:56:07 AM EDT 1 TAB active [facility] Acetaminophen 325 MG / Oxycodone Hydroch loride 5 MG Oral Tablet Oxycodone- Acetaminophen (Percocet) 5-325 mg tablet Oxycodone-Acetaminophen (Percocet) 5- 325 mg tablet 11/14/2020 07:56:07 AM EDT 1 TAB completed [facility] Acetaminophen 325 MG / Oxycodone Hydroch loride 5 MG Oral Tablet Oxycodone- Acetaminophen (Percocet) 5-325 mg tablet Oxycodone-Acetaminophen (Percocet) 5- 325 mg tablet 11/14/2020 07:56:07 AM EDT 1 TAB completed [facility] quetiapine 100 MG Oral Tablet QUETIAPINE FUMARATE 11/03/2020 12: 00:00 AM EST tablet 60 TAKE TWO TABLETS BY MOUTH EVERY EVENING NEEDED TAKE TWO TABLETS BY MOUTH EVERY EVENING NEEDED SOLD: 11/07/2020 [facility] 20 mg 11/03/2020 12:00:00 AM EST tablet 30 TAKE ONE TABLET BY MOUTH EVERY DAY IN THE AFTERNOON MAXIMUM DAILY DOSE = ONE TABLET TAKE ONE TABLET BY MOUTH EVERY DAY IN THE AFTERNOON MAXIMUM DAILY DOSE = ONE TABLET SOLD: 11/07/2020 [facility] 10 mg 11/03/2020 12:00:00 AM EST tablet 30 TAKE ONE TABLET BY MOUTH EVERY DAY NEEDED MAXIMUM DAILY DOSE = ONE TABLET TAKE ONE TABLET BY MOUTH EVERY DAY NEEDED MAXIMUM DAILY DOSE = ONE TABLET SOLD: 11/07/2020 [facility] 30 mg 10/20/2020 12:00:00 AM EST capsule,extended releas e 24hr 30 TAKE ONE CAPSULE BY MOUTH EVERY DAY MAXIMUM DAILY DOSE = 1 TAKE ONE CAPSULE BY MOUTH EVERY DAY MAXIMUM DAILY DOSE = 1 SOLD: 10/20/2020 [facility] 10 mg 10/20/2020 12:00:00 AM EST tablet 30 TAKE ONE TABLET BY MOUTH AT BEDTIME NEEDED FOR SLEEP MAXIMUM DAILY DOSE = 1 TAKE ONE TABLET BY MOUTH AT BEDTIME NEEDED FOR SLEEP MAXIMUM DAILY DOSE = 1 SOLD: 10/20/2020 [facility] Acetaminophen 325 MG / Oxycodone Hydroch loride 5 MG Oral Tablet Oxycodone- Acetaminophen (Percocet) 5-325 mg tablet Oxycodone-Acetaminophen (Percocet) 5- 325 mg tablet 10/17/2020 02:50:14 PM EST 1 TAB completed [facility] Acetaminophen 325 MG / Oxycodone Hydroch loride 5 MG Oral Tablet Oxycodone- Acetaminophen (Percocet) 5-325 mg tablet Oxycodone-Acetaminophen (Percocet) 5- 325 mg tablet 10/17/2020 02:50:14 PM EST 1 TAB completed [facility] Acetaminophen 325 MG / Oxycodone Hydroch loride 5 MG Oral Tablet Oxycodone- Acetaminophen (Percocet) 5-325 mg tablet Oxycodone-Acetaminophen (Percocet) 5- 325 mg tablet 10/17/2020 02:50:14 PM EST 1 TAB active [facility] Acetaminophen 325 MG / Oxycodone Hydroch loride 5 MG Oral Tablet Oxycodone- Acetaminophen (Percocet) 5-325 mg tablet Oxycodone-Acetaminophen (Percocet) 5- 325 mg tablet 10/17/2020 02:50:14 PM EST 1 TAB completed [facility] Desvenlafaxine Succinate 10/17/2020 02:17:24 PM EST 100 MG completed [facility] Desvenlafaxine Succinate 10/17/2020 02:17:24 PM EST 100 MG completed [facility] Desvenlafaxine Succinate 10/17/2020 02:17:24 PM EST 100 MG completed [facility] Desvenlafaxine Succinate 10/17/2020 02:17:24 PM EST 100 MG completed [facility] 5-325 mg 10/17/2020 12:00:00 AM EST tablet 120 TAKE ONE TABLET BY MOUTH EVERY 6 HOURS NEEDED FOR PAIN (SCALE SCORE 7-10) MAXIMUM DAILY DOSE = FOUR TABLETS TAKE ONE TABLET BY MOUTH EVERY 6 HOURS A S NEEDED FOR PAIN (SCALE SCORE 7-10) MAXIMUM DAILY DOSE = FOUR TABLETS SOLD: 10/17/2020 [facility] 10 mg 10/04/2020 12:00:00 AM EST tablet 30 TAKE ONE TABLET BY MOUTH EVERY DAY NEEDED MAXIMUM DAILY DOSE = ONE TABLET TAKE ONE TABLET BY MOUTH EVERY DAY NEEDED MAXIMUM DAILY DOSE = ONE TABLET SOLD: 10/05/2020 [facility] 20 mg 10/04/2020 12:00:00 AM EST tablet 30 TAKE 1 TABLET BY MOUTH ONCE DAILY IN THE AFTERNOON MAXIMUM DAILY DOSE = 1 TABLET TAKE 1 TABLET BY MOUTH ONCE DAILY IN THE AFTERNOON MAXIMUM DAILY DOSE = 1 TABLET SOLD: 10/05/2020 [facility] 30 mg 09/15/2020 12:00:00 AM EST capsule,extended releas e 24hr 30 TAKE ONE CAPSULE BY MOUTH EVERY DAY MAXIMUM DAILY DOSE = 1 CAPSULE TAKE ONE CAPSULE BY MOUTH EVERY DAY MAXIMUM DAILY DOSE = 1 CAPSULE SOLD: 09/15/2020 [facility] 5-325 mg 09/13/2020 12:00:00 AM EST tablet 120 TAKE ONE TABLET BY MOUTH EVERY 6 HOURS NEEDED FOR PAIN (SCALE SCORE 7-10) MAXIMUM DAILY DOSE = 4 TABLETS TAKE ONE TABLET BY MOUTH EVERY 6 HOURS A S NEEDED FOR PAIN (SCALE SCORE 7-10) MAXIMUM DAILY DOSE = 4 TABLETS SOLD: 09/13/2020 [facility] Acetaminophen 325 MG / Oxycodone Hydroch loride 5 MG Oral Tablet Oxycodone- Acetaminophen (Percocet) 5-325 mg tablet Oxycodone-Acetaminophen (Percocet) 5- 325 mg tablet 09/11/2020 08:27:15 AM EST 1 TAB completed [facility] Acetaminophen 325 MG / Oxycodone Hydroch loride 5 MG Oral Tablet Oxycodone- Acetaminophen (Percocet) 5-325 mg tablet Oxycodone-Acetaminophen (Percocet) 5- 325 mg tablet 09/11/2020 08:27:15 AM EST 1 TAB completed [facility] Acetaminophen 325 MG / Oxycodone Hydroch loride 5 MG Oral Tablet Oxycodone- Acetaminophen (Percocet) 5-325 mg tablet Oxycodone-Acetaminophen (Percocet) 5- 325 mg tablet 09/11/2020 08:27:15 AM EST 1 TAB completed [facility] Acetaminophen 325 MG / Oxycodone Hydroch loride 5 MG Oral Tablet Oxycodone- Acetaminophen (Percocet) 5-325 mg tablet Oxycodone-Acetaminophen (Percocet) 5- 325 mg tablet 09/11/2020 08:27:15 AM EST 1 TAB completed [facility] quetiapine 100 MG Oral Tablet QUETIAPINE FUMARATE 09/05/2020 12: 00:00 AM EST tablet 60 TAKE 2 TABLETS BY MOUTH NIGHTLY NEEDED TAKE 2 TABLETS BY MOUTH NIGHTLY NEEDED SOLD: 09/06/2020 [facility] 10 mg 09/04/2020 12:00:00 AM EST tablet 30 TAKE ONE TABLET BY MOUTH EVERY DAY AT BEDTIME NEEDED FOR SLEEP MAXIMUM DAILY DOSE = 1 TABLET TAKE ONE TABLET BY MOUTH EVERY DAY AT BEDTIME NEEDED FOR SLEEP MAXIMUM DAILY DOSE = 1 TABLET SOLD: 09/06/2020 [facility] 20 mg 09/04/2020 12:00:00 AM EST tablet 30 TAKE ONE TABLET BY MOUTH EVERY DAY IN THE AFTERNOON MAXIMUM DAILY DOSE = 1 TABLET TAKE ONE TABLET BY MOUTH EVERY DAY IN THE AFTERNOON MAXIMUM DAILY DOSE = 1 TABLET SOLD: 09/06/2020 [facility] 30 mg 08/16/2020 12:00:00 AM EST capsule,extended releas e 24hr 30 TAKE ONE CAPSULE BY MOUTH EVERY DAY MAXIMUM DAILY DOSE = 1 CAPSULE TAKE ONE CAPSULE BY MOUTH EVERY DAY MAXIMUM DAILY DOSE = 1 CAPSULE SOLD: 08/17/2020 [facility] Acetaminophen 325 MG / Oxycodone Hydroch loride 5 MG Oral Tablet Oxycodone- Acetaminophen (Percocet) 5-325 mg tablet Oxycodone-Acetaminophen (Percocet) 5- 325 mg tablet 08/14/2020 12:06:47 PM EST 1 TAB completed [facility] Acetaminophen 325 MG / Oxycodone Hydroch loride 5 MG Oral Tablet Oxycodone- Acetaminophen (Percocet) 5-325 mg tablet Oxycodone-Acetaminophen (Percocet) 5- 325 mg tablet 08/14/2020 12:06:47 PM EST 1 TAB completed [facility] Acetaminophen 325 MG / Oxycodone Hydroch loride 5 MG Oral Tablet Oxycodone- Acetaminophen (Percocet) 5-325 mg tablet Oxycodone-Acetaminophen (Percocet) 5- 325 mg tablet 08/14/2020 12:06:47 PM EST 1 TAB completed [facility] Acetaminophen 325 MG / Oxycodone Hydroch loride 5 MG Oral Tablet Oxycodone- Acetaminophen (Percocet) 5-325 mg tablet Oxycodone-Acetaminophen (Percocet) 5- 325 mg tablet 08/14/2020 12:06:47 PM EST 1 TAB completed [facility] 5-325 mg 08/14/2020 12:00:00 AM EST tablet 120 TAKE ONE TABLET BY MOUTH EVERY 6 HOURS NEEDED FOR PAIN (SCALE SCORE 7-10) MAXIMUM DAILY DOSE = FOUR TABLETS TAKE ONE TABLET BY MOUTH EVERY 6 HOURS A S NEEDED FOR PAIN (SCALE SCORE 7-10) MAXIMUM DAILY DOSE = FOUR TABLETS SOLD: 08/15/2020 [facility] quetiapine 100 MG Oral Tablet QUETIAPINE FUMARATE 08/11/2020 12: 00:00 AM EST tablet 60 TAKE 2 TABLETS BY MOUTH NIGHTLY NEEDED TAKE 2 TABLETS BY MOUTH NIGHTLY NEEDED SOLD: 08/15/2020 [facility] 20 mg 07/20/2020 12:00:00 AM EST tablet 30 TAKE ONE TABLET BY MOUTH EVERY DAY IN THE AFTERNOON MAXIMUM DAILY DOSE = 1 TABLET TAKE ONE TABLET BY MOUTH EVERY DAY IN THE AFTERNOON MAXIMUM DAILY DOSE = 1 TABLET SOLD: 08/01/2020 [facility] 30 mg 07/18/2020 12:00:00 AM EST capsule,extended releas e 24hr 30 TAKE ONE CAPSULE BY MOUTH EVERY DAY MAXIMUM DAILY DOSE = 1 CAPSULE TAKE ONE CAPSULE BY MOUTH EVERY DAY MAXIMUM DAILY DOSE = 1 CAPSULE SOLD: 07/18/2020 [facility] Acetaminophen 325 MG / Oxycodone Hydroch loride 5 MG Oral Tablet Oxycodone- Acetaminophen (Percocet) 5-325 mg tablet Oxycodone-Acetaminophen (Percocet) 5- 325 mg tablet 07/11/2020 04:14:33 PM EST 1 TAB completed [facility] Acetaminophen 325 MG / Oxycodone Hydroch loride 5 MG Oral Tablet Oxycodone- Acetaminophen (Percocet) 5-325 mg tablet Oxycodone-Acetaminophen (Percocet) 5- 325 mg tablet 07/11/2020 04:14:33 PM EST 1 TAB completed [facility] Acetaminophen 325 MG / Oxycodone Hydroch loride 5 MG Oral Tablet Oxycodone- Acetaminophen (Percocet) 5-325 mg tablet Oxycodone-Acetaminophen (Percocet) 5- 325 mg tablet 07/11/2020 04:14:33 PM EST 1 TAB completed [facility] Acetaminophen 325 MG / Oxycodone Hydroch loride 5 MG Oral Tablet Oxycodone- Acetaminophen (Percocet) 5-325 mg tablet Oxycodone-Acetaminophen (Percocet) 5- 325 mg tablet 07/11/2020 04:14:33 PM EST 1 TAB completed [facility] Acetaminophen 325 MG / Oxycodone Hydroch loride 5 MG Oral Tablet Oxycodone- Acetaminophen (Percocet) 5-325 mg tablet Oxycodone-Acetaminophen (Percocet) 5- 325 mg tablet 07/11/2020 04:14:33 PM EST 1 TAB active [facility] 5-325 mg 07/11/2020 12:00:00 AM EST tablet 120 TAKE ONE TABLET BY MOUTH EVERY 6 HOURS NEEDED FOR PAIN (SCALE SCORE 7-10) MAXIMUM DAILY DOSE = FOUR TABLETS TAKE ONE TABLET BY MOUTH EVERY 6 HOURS A S NEEDED FOR PAIN (SCALE SCORE 7-10) MAXIMUM DAILY DOSE = FOUR TABLETS SOLD: 07/12/2020 [facility] quetiapine 100 MG Oral Tablet QUETIAPINE FUMARATE 07/07/2020 12: 00:00 AM EST tablet 60 TAKE TWO TABLETS BY MOUTH NIGHTL Y NEEDED TAKE TWO TABLETS BY MOUTH NIGHTLY NEEDED SOLD: 07/08/2020 [facility] Acetaminophen 325 MG / Oxycodone Hydroch loride 5 MG Oral Tablet Oxycodone- Acetaminophen (Percocet) 5-325 mg tablet Oxycodone-Acetaminophen (Percocet) 5- 325 mg tablet 07/01/2020 09:05:29 AM EDT 1 TAB completed [facility] Acetaminophen 325 MG / Oxycodone Hydroch loride 5 MG Oral Tablet Oxycodone- Acetaminophen (Percocet) 5-325 mg tablet Oxycodone-Acetaminophen (Percocet) 5- 325 mg tablet 07/01/2020 09:05:29 AM EDT 1 TAB completed [facility] Acetaminophen 325 MG / Oxycodone Hydroch loride 5 MG Oral Tablet Oxycodone- Acetaminophen (Percocet) 5-325 mg tablet Oxycodone-Acetaminophen (Percocet) 5- 325 mg tablet 07/01/2020 09:05:29 AM EDT 1 TAB completed [facility] Acetaminophen 325 MG / Oxycodone Hydroch loride 5 MG Oral Tablet Oxycodone- Acetaminophen (Percocet) 5-325 mg tablet Oxycodone-Acetaminophen (Percocet) 5- 325 mg tablet 07/01/2020 09:05:29 AM EDT 1 TAB completed [facility] Acetaminophen 325 MG / Oxycodone Hydroch loride 5 MG Oral Tablet Oxycodone- Acetaminophen (Percocet) 5-325 mg tablet Oxycodone-Acetaminophen (Percocet) 5- 325 mg tablet 07/01/2020 09:05:29 AM EDT 1 TAB completed [facility] 5-325 mg 07/01/2020 12:00:00 AM EDT tablet 40 TAKE ONE TABLET BY MOUTH EVERY 6 HOURS NEEDED FOR PAIN (SCALE SCORE 7-10) MAXIMUM DAILY DOSE = 4 TABLETS TAKE ONE TABLET BY MOUTH EVERY 6 HOURS NEEDED FOR PAIN (SCALE SCORE 7-10) MAXIMUM DAILY DOSE = 4 TABLETS SOLD: 07/01/2020 [facility] 10 mg 06/29/2020 12:00:00 AM EDT tablet 30 TAKE ONE TABLET BY MOUTH EVERY DAY IN THE AFTERNOON MAXIMUM DAILY DOSE = 1 TABLET TAKE ONE TABLET BY MOUTH EVERY DAY IN THE AFTERNOON MAXIMUM DAILY DOSE = 1 TABLET SOLD: 07/01/2020 [facility] 10 mg 06/24/2020 12:00:00 AM EDT tablet 30 TAKE ONE TABLET BY MOUTH AT BEDTIME NEEDED FOR SLEEP MAXIMUM DAILY DOSE = 1 TABLET TAKE ONE TABLET BY MOUTH AT BEDTIME NEEDED FOR SLEEP MAXIMUM DAILY DOSE = 1 TABLET SOLD: 06/25/2020 [facility] 10 mg 06/24/2020 12:00:00 AM EDT tablet 30 TAKE ONE TABLET BY MOUTH AT BEDTIME NEEDED FOR SLEEP MAXIMUM DAILY DOSE = 1 TABLET TAKE ONE TABLET BY MOUTH AT BEDTIME NEEDED FOR SLEEP MAXIMUM DAILY DOSE = 1 TABLET SOLD: 08/04/2020 [facility] 30 mg 06/18/2020 12:00:00 AM EDT capsule,extended releas e 24hr 30 TAKE ONE CAPSULE BY MOUTH EVERY DAY MAXIMUM DAILY DOSE = 1 CAPSULE TAKE ONE CAPSULE BY MOUTH EVERY DAY MAXIMUM DAILY DOSE = 1 CAPSULE SOLD: 06/19/2020 [facility] 5 mg 06/18/2020 12:00:00 AM EDT tablet 60 TAKE ONE TABLET BY MOUTH TWICE A DAY NEEDED MAXIMUM DAILY DOSE = 2 TABLETS TAKE ONE TABLET BY MOUTH TWICE A DAY NEEDED MAXIMUM DAILY DOSE = 2 TABLETS SOLD: 06/19/2020 [facility] 10 mg 05/30/2020 12:00:00 AM EDT tablet 3 TAKE 1 TABLET BY MOUTH ONCE DAILY IN THE AFTERNOON MAXIMUM DAILY DOSE = 1 TABLET TAKE 1 TABLET BY MOUTH ONCE DAILY IN THE AFTERNOON MAXIMUM DAILY DOSE = 1 TABLET SOLD: 05/31/2020 [facility] Amphetamine aspartate 2.5 MG / Amphetami ne Sulfate 2.5 MG / Dextroamphetamine saccharate 2.5 MG / Dextroamphetamine Sulfate 2.5 MG Oral Tablet 10 mg DEXTROAMPHETAMINE SULF-SACCHARATE/AMPHETAMINE SULF-ASPARTATE 05/30/2020 12:00:00 AM EDT tablet 27 TAKE 1 TABLET BY MOUTH ONCE DAILY IN THE AFTERNOON MAXIMUM DAILY DOSE = 1 TABLET TAKE 1 TABLET BY MOUTH ONCE DAILY IN THE AFTERNOON MAXIMUM DAILY DOSE = 1 TABLET SOLD: 06/02/2020 [facility] Acetaminophen 325 MG / Oxycodone Hydroch loride 5 MG Oral Tablet Oxycodone- Acetaminophen (Percocet) 5-325 mg tablet Oxycodone-Acetaminophen (Percocet) 5- 325 mg tablet 05/29/2020 09:21:07 AM EDT 1 TAB completed [facility] Acetaminophen 325 MG / Oxycodone Hydroch loride 5 MG Oral Tablet Oxycodone- Acetaminophen (Percocet) 5-325 mg tablet Oxycodone-Acetaminophen (Percocet) 5- 325 mg tablet 05/29/2020 09:21:07 AM EDT 1 TAB completed [facility] Acetaminophen 325 MG / Oxycodone Hydroch loride 5 MG Oral Tablet Oxycodone- Acetaminophen (Percocet) 5-325 mg tablet Oxycodone-Acetaminophen (Percocet) 5- 325 mg tablet 05/29/2020 09:21:07 AM EDT 1 TAB completed [facility] Acetaminophen 325 MG / Oxycodone Hydroch loride 5 MG Oral Tablet Oxycodone- Acetaminophen (Percocet) 5-325 mg tablet Oxycodone-Acetaminophen (Percocet) 5- 325 mg tablet 05/29/2020 09:21:07 AM EDT 1 TAB active [facility] Acetaminophen 325 MG / Oxycodone Hydroch loride 5 MG Oral Tablet Oxycodone- Acetaminophen (Percocet) 5-325 mg tablet Oxycodone-Acetaminophen (Percocet) 5- 325 mg tablet 05/29/2020 09:21:07 AM EDT 1 TAB completed [facility] Acetaminophen 325 MG / Oxycodone Hydroch loride 5 MG Oral Tablet Oxycodone- Acetaminophen (Percocet) 5-325 mg tablet Oxycodone-Acetaminophen (Percocet) 5- 325 mg tablet 05/29/2020 09:21:07 AM EDT 1 TAB completed [facility] 5-325 mg 05/29/2020 12:00:00 AM EDT tablet 120 TAKE ONE TABLET BY MOUTH EVERY 6 HOURS NEEDED FOR PAIN (SCALE SCORE 7-10) MAXIMUM DAILY DOSE = 4 TAKE ONE TABLET BY MOUTH EVERY 6 HOURS NEEDED FOR PAIN (SCALE SCORE 7-10) MAXIMUM DAILY DOSE = 4 SOLD: 05/29/2020 [facility] 30 mg 05/20/2020 12:00:00 AM EDT capsule,extended releas e 24hr 30 TAKE ONE CAPSULE BY MOUTH EVERY DAY MAXIMUM DAILY DOSE = 1 CAPSULE TAKE ONE CAPSULE BY MOUTH EVERY DAY MAXIMUM DAILY DOSE = 1 CAPSULE SOLD: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 years?: no, 6. Do you have 2 or more relatives with breast and/or ovarian cancer?: no and 7. 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 Do you have diabetes?: no, 2. Do you have (or have you ever had) any of the following: CHD, CAD, heart attack, noncoronary atherosclerosis, abdominal aneurysm, peripheral artery disease, carotid artery stenosis?: no, 3. Do you have a close male relative who had cardiovascular disease (such as a heart attack) before the age of 50 or a female relative who had itbefore age 60?: yes (mother), 4. Do you use tobacco in any form (cigarettes, e-cigarettes, cigars, etc.)?: yes, 5. Do you have hypertension (high blood pressure)?: no and 6. Is your body mass index (BMI) 30 kg/m2 or greater?: no Tobacco smoking status: Current every day smoker quit status: not considering quitting counseling given: counseling >3 minutes Alcohol Alcohol: former drinker Drugs/substances Substances: other (THC) Safety Car safety: wears a seatbelt Motorcycle safety: rides a motorcycle and wears a helmet Bicycle safety: rides a bicycle and wears a helmet Home safety: water heater temperature set to <120 degrees, has working smoke detectors in home, has a fire extinguisher in the home and has a working carbon monoxide detector in the home Risk factor: 1. Was born in a country or region with a high prevalence of HBV?: no, 2. Was born in the [place] AND was not vaccinated as infant AND whose parents are from [place], [place], [place] or the [place] (excluding [place] and [place])?: no, 3. Is HIV positive?: no, 4. Is or was an IV drug user?: no, 5. Is a man who has sex with men?: no, 7. Has persistently elevated ALT or AST levels of unknown etiology: no, 8. Is on hemodialysis: no and 9. Ricky cytotoxic or immunosuppressive therapy (for example, chemotherapy for malignant diseases, or immunosuppression related to organ transplantation, rheumatologic or gastroenterologic disorders).: no Risk factor: 1. Do you currently use IV drugs?: no, 2. Do you have a history of IV drug use?: no and3. Were you born between 1945 and 1964?: no Review of Systems Const Denies anorexia, Denies fatigue, Denies fever(s), Denies weight gain and Denies weight loss Eyes Denies blurry vision, Denies change in vision, Denies dry eyes, Denies irritation, Denies itchy eyesand Denies loss of vision ENT Denies abnormal hearing, Denies dysphagia, Denies lip swelling, Denies nasal congestion, Denies nasal discharge, Reports neck pain, Denies sinus pain, Denies sore throat and Denies throat swelling Details: dental pain due to rotting teeth. Card Denies chest pain, Denies pedal edema, Denies lightheadedness, Denies palpitations and Denies dyspnea Resp Denies dyspnea GI Denies abdominal pain, Denies change in bowel habits, Denies dysphagia, Denies early satiety, Deniesheartburn, Denies diarrhea, Denies nausea and Denies vomiting Musc Reports back pain, Denies arthralgias, Denies limited range of motion, Denies muscle cramps, Denies muscle weakness and Reports neck pain Skin/Breast Denies breast pain, Denies change in pigmentation, Denies lesions, Denies nail changes, Denies rash and Denies unusual bruising Neuro Denies abnormal hearing and Denies loss of vision Psych Denies abnormal sleep pattern, Reports anxiety, Denies change in appetite, Denies depression and Denies irritability Endo Denies fatigue and Denies palpitations Henri/Lymph Denies easy bleeding, Denies easy bruising and Denies lymphadenopathy Aller/Immun Denies urticaria, Denies itchy eyes, Denies lip swelling, Denies seasonal rhinorrhea and Denies throat swelling Exam Const General: cooperative, healthy appearing, no acute distress, well developed and well groomed Nutritional Appearance: well nourished Orientation: alert, awake and oriented x3 [facility] Head: normal to inspection, normocephalic, atraumatic and no scalp tenderness Ears: hearing grossly normal bilaterally, external ears normal, TM's normal bilaterally, EAC's normal and no periauricular adenopathy General nose exam: external nose normal, nares normal, no nasal polyps, septum normal and no nasal discharge Face and sinus: normal facial exam and sinuses nontender Mouth: oral mucosae normal, lip normal, tongue normal, oropharynx normal and moist mucous membranes Teeth and gingiva: abnormal tooth and associated gingiva and poor dentition Throat: posterior oropharynx normal Eyes General: appearance normal, both eyes and all related structures Periorbital: periorbital findings normal Eyelids: eyelids normal Conjunctivae: conjunctivae normal Sclera: sclerae normal Pupils: PERRL EOM: EOM intact bilaterally Direct ophthalmoscopy: normal light reflex Neck Neck: normal visual inspection, full ROM, no lymphadenopathy, supple and no JVD present Neck mass: No Thyroid: thyroid normal Carotids: normal carotid upstroke Chest Chest: normal inspection of the chest Breast/Axilla Inspection: normal inspection of the breasts and normal inspection of the axillae Breast/Axilla Palpation: normal palpation of the breasts and no axillary lymphadenopathy Resp Effort Inspection: normal respiratory effort Auscultation: clear to auscultation bilaterally Percussion: percussion normal Cardio Jugular venous pressure: no JVD Palpation: normal PMI Rate: regular rate Rhythm: regular rhythm Heart Sounds: S1 normal and S2 normal Pulses: normal peripheral pulses GI Inspection: Yes normal to inspection Palpation: soft Percussion: normal to percussion Auscultation: normal bowel sounds General: bimanual renal exam normal bilaterally Musc Cervical Spine: normal cervical lordosis and cervical spinal tenderness Thoracic/Lumbar Spine: thoracic and lumbar spine normal to inspection and pain with thoraco-lumbar ROM Pelvis: no pain with anterior- posterior compression and no pain with lateral compression Skin Lesions: no lesions Rashes: no rashes Hair: normal Nails: normal Neuro General: patient alert, patient awake, patient oriented x3, gait normal, moves all extremities and normal light touch, pain and propioception Cranial Nerves: CN's II-XII intact bilaterally Cognition: normal cognition Speech: speech normal Gait: normal gait Motor: muscle tone normal throughout and strength 5/5 throughout Sensory Exam: no sensory deficits noted Extrem General: normal to inspection, full ROM, capillary refill normal, no clubbing, cyanosis or edema andno muscle atrophy Psych Appearance: grossly normal and disheveled Mental Status: mental status grossly normal Speech and Movement: speech and movement normal Affect: normal affect Attitude: cooperative Thought Process: normal Thought Content: normal Insight: insight good Judgment: judgment good Assessment Plan Assessment Plan (1) Encounter for annual health examination: Code(s): Z00.00 - Encounter for general adult medical examination without abnormal findings Plan - Jeannine Siddiqui NP: Patient given IFOB for colon cancer screening. She refuses colonoscopy. Refuses labs and flu shot. Patient refuses to go to the clerical specialist. Patient refuses mammogram at this time. Patient is going to the oral surgeon for dental problems. 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 (3) Broken tooth with complication: Status: Acute SNOMED Code(s): 4135397 - Broken tooth with complication Category: Medical Plan - Jeannine Siddiqui NP: Follow up with oral surgeon. Go to ER if problems. Orders Follow Up: One year (annual exam) <Electronically signed by Jeannine Siddiqui NP> 06/22/20 0816 Name Value Range Interpretation Code Description Data Ursula rce(s) Supporting Document(s) Procedure Social History Code Duration Value Status Description Data Source(s ) 01/10/2021 09:28:59 PM EDT Yes completed Yes [facility] 01/10/2021 09:28:59 PM EDT No completed No [facility] 01/10/2021 09:28:59 PM EDT Current every day smoker co mpleted Current every day smoker [facility] 01/10/2021 09:28:59 PM EDT Yes completed Yes [facility] 01/10/2021 09:28:59 PM EDT No completed No [facility] 01/10/2021 09:28:59 PM EDT Current every day smoker co mpleted Current every day smoker [facility] 01/10/2021 09:28:59 PM EDT Yes completed Yes [facility] 01/10/2021 09:28:59 PM EDT No completed No [facility] 01/10/2021 09:28:59 PM EDT Current every day smoker co mpleted Current every day smoker [facility] Smoking 01/10/2021 09:28:00 PM EDT Current every day smoker co mpleted Current every day smoker [facility]
[2021-06-13 17:09] VITALS: BP 177/72
[2021-06-13] MEDS ORDERED: OXYC10TA3 PO (17:30)
[2021-06-13] MEDS ORDERED: QUET200T2 PO (17:30)
[2021-06-13] MEDS ORDERED: AMPHET/DEXTR PO (17:30)
[2021-06-13] MEDS ORDERED: ZOLP10TA2 PO (17:30)
[2021-06-13 19:12] LABS: AMPHETAMINES LEVEL URINE POSITIVE (NEGATIVE); BARBITURATES URINE NEGATIVE (NEGATIVE); BENZODIAZEPINES URINE POSITIVE (NEGATIVE); CANNABINOIDS URINE POSITIVE (NEGATIVE); COCAINE METABOLITE URINE NEGATIVE (NEGATIVE); METHADONE URINE NEGATIVE (NEGATIVE); OPIATES URINE NEGATIVE (NEGATIVE); PHENCYCLIDINE URINE NEGATIVE (NEGATIVE)
--- OUTSIDE RECORDS SUMMARY | 2021-06-13 21:20 | CCD ---
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 TABLET BY MOUTH EVERY 6 HOURS NEEDED FOR PAIN (SCALE SCORE 7-10) MAXIMUM DAILY DOSE = 4 TAKE ONE TABLET BY MOUTH EVERY 6 HOURS NEEDED FOR PAIN (SCALE SCORE 7-10) MAXIMUM DAILY DOSE = 4 SOLD: 05/29/2020 [facility] ugeloy 30 mg 05/20/2020 12:00:00 AM EDT capsule,extended [...] 04/11/2020 12:17:25 PM EDT 1 TAB completed [facility] Acetaminophen 325 MG / Oxycodone Hydroch loride 5 MG Oral Tablet Oxycodone- Acetaminophen (Percocet) 5-325 mg tablet Oxycodone-Acetaminophen (Percocet) 5- 325 mg tablet 04/11/2020 12:17:25 PM EDT 1 TAB completed [facility] Acetaminophen 325 MG / Oxycodone Hydroch loride 5 MG Oral Tablet Oxycodone- Acetaminophen (Percocet) 5-325 mg tablet Oxycodone-Acetaminophen (Percocet) 5- 325 mg tablet 04/11/2020 12:17:25 PM EDT 1 TAB completed [facility] Acetaminophen 325 MG / Oxycodone Hydroch loride 5 MG Oral Tablet Oxycodone- Acetaminophen (Percocet) 5-325 mg tablet Oxycodone-Acetaminophen (Percocet) 5- 325 mg tablet 04/11/2020 12:17:25 PM EDT 1 TAB completed [facility] Acetaminophen 325 MG / Oxycodone Hydroch loride 5 MG Oral Tablet Oxycodone- Acetaminophen (Percocet) 5-325 mg tablet Oxycodone-Acetaminophen (Percocet) 5- 325 mg tablet 04/11/2020 12:17:25 PM EDT 1 TAB completed [facility] Acetaminophen 325 MG / Oxycodone Hydroch loride 5 MG Oral Tablet Oxycodone- Acetaminophen (Percocet) 5-325 mg tablet Oxycodone-Acetaminophen (Percocet) 5- 325 mg tablet 04/11/2020 12:17:25 PM EDT 1 TAB completed [facility] doxycycline hyclate 100 MG Oral Capsule Doxycycline Hyclate Doxycycline Hyclate 02/01/2020 02:31:50 PM EDT 100 MG completed [facility] doxycycline hyclate 100 MG Oral Capsule Doxycycline Hyclate Doxycycline Hyclate 02/01/2020 02:31:50 PM EDT 100 MG completed [facility] doxycycline hyclate 100 MG Oral Capsule Doxycycline Hyclate Doxycycline Hyclate 02/01/2020 02:31:50 PM EDT 100 MG completed [facility] doxycycline hyclate 100 MG Oral Capsule Doxycycline Hyclate Doxycycline Hyclate 02/01/2020 02:31:50 PM EDT 100 MG completed [facility] doxycycline hyclate 100 MG Oral Capsule Doxycycline Hyclate Doxycycline Hyclate 02/01/2020 02:31:50 PM EDT 100 MG completed [facility] doxycycline hyclate 100 MG Oral Capsule Doxycycline Hyclate Doxycycline Hyclate 02/01/2020 02:31:50 PM EDT 100 MG completed [facility] Desvenlafaxine Succinate 04/24/2019 05:28:12 AM EDT 100 MG completed [facility] Desvenlafaxine Succinate 04/24/2019 05:28:12 AM EDT 100 MG completed [facility] Desvenlafaxine Succinate 04/24/2019 05:28:12 AM EDT 100 MG completed [facility] Desvenlafaxine Succinate 04/24/2019 05:28:12 AM EDT 100 MG completed [facility] Insurance Providers Payer name Policy type / Coverage type Policy ID Covered democrat ID Covered democrat's relationship to burger Policy Burger Plan Information FAM [id number] SP [id number] FAM (192) [id number] Managed Care [place] P [id number] S [id number] Medicaid S [id number] S [id number] MEDICAID [id number] [employer] [facility] O UNAVAILABLE S UNAVAILABLE Managed Care [place] P UNAVAILABLE S UNAVAILABLE Problems, Conditions, and Diagnoses No Information Surgeries/Procedures Procedure Description Date Indications Data Source(s) Xray Hand Complete RT 12/11/2020 02:30:00 PM EDT [facility] Xray Hand Complete RT 12/11/2020 02:30:00 PM EDT [facility] Xray Lumbar spine complete 12/11/2020 02:29:00 PM EDT [facility] Radiography of cervical spine (procedure) 12/11/2020 0 2:29:00 PM EDT [facility] Xray Lumbar spine complete 12/11/2020 02:29:00 PM EDT [facility] Radiography of cervical spine (procedure) 12/11/2020 0 2:29:00 PM EDT [facility] Xray Hand Complete LT 12/11/2020 02:01:19 PM EDT [facility] Xray Hand Complete LT 12/11/2020 02:01:19 PM EDT [facility] Results ID Date Data Source [id number] 04/16/2021 04:00:00 PM EDT [facility] Name: LYNDA MIRANDA : [birth year] Age: 55 MR#: [id number] Admit Date: 04/16/21 Provider: Caroline Davis MD Room #: Consulting Provider: Dictation Date: 04/16/21 Pain Management HPI Pain Management Pain History Details: Pt requests phone visit be done today. Patient and Talon are present. Caroline Davis MD in private office with door closed. Pt again consents for phone visit and would like toproceed with present. Has been in [place] as daughter seriously injured. Phone visit was [...] Is now going to switch insurance to [place] and would like to have them ordered [...] did have TPI -no help) or surgery [facility] Medical History Acute upper respiratory infection Acute [...] M54.12 - Radiculopathy, cervical region SNOMED Code(s): 29213398 Category: Medical Plan: pt agreeable to PT (Problem) Plan of care:: (2) Lumbar radiculopathy: Status: Chronic Code(s): M54.16 - Radiculopathy, lumbar region SNOMED Code(s): 228781527 Category: Medical Plan: pt agreeable to PT (3) Therapeutic drug monitoring: Status: Chronic Code(s): Z51.81 - Encounter for therapeutic drug level monitoring SNOMED Code(s): 335060613 Category: Medical Plan: see below Orders: Orders Physical Therapy Eval - [facility] 1 Month M54.12 - Radiculopathy, cervical region, M54.16 - Radiculopathy, lumbar region Medications: Changed From oxycodone-acetaminophen 5-325 mg (Percocet) [employer] EQUIPMENT reviewed #[id number] 1 tab PO Q6H PRN 120 tabs 0RF pain (scale score 7-10) MDD 4 To oxycodone- acetaminophen 5-325 mg (Percocet) [employer] EQUIPMENT reviewed #[id number] 1 tab PO Q6H PRN 120 tabs 0RF pain (scale score 7-10) MDD 4 Therapeutic Drug Monitoring Therapeutic Drug Monitoring: UDS up to date, Pain contract in place, ORT - Moderate risk, TE[employer]IAN [employer] CABLE EQUIPMENT checked prior to refills, Do not suspect [...] rce(s) Supporting Document(s) ID Date Data Source [id number] 01/16/2021 11:29:00 AM EDT [facility] Patient Name: LYNDA MIRANDA : 1965 Sex: F Pt Unit #: [id number] Location:[facility] Provider: Visit Date/Time: 01/16/21 Primary Insurance: [facility] Secondary Insurance: Self Pay Intake Vital Signs [...] of 1 and1/2 by 2, and 1x1. Marine Firefighter Required: No Acc ompanied by: Self / [...] HPI Additional HPI HPI Details: agree with director of sports performance intake Onset: 01/10/21 Location: left wrist Duration: 4-5 days Relieving factors: silver sulfadiazine ointment [facility] Medical History (Updated 01/16/21 @ 12:34 by [...] Const General: cooperative, healthy appearing and comfortable HENMT Head: normocephalic Eyes General: appearance normal, both [...] of left wrist, initial encounter SNOMED Code(s): 72740554988392609 Category: Medical Plan: reviewed emergency room medical treatment refilled silver sulfadiazene cream dressing, bandage by director of sports performance f/u one week if condition worsens, then go to ER she agrees to plan (2) Screen for colon cancer: Status: Acute Code(s): Z12.11 - Encounter for screening for malignant neoplasm of colon SNOMED Code(s): 534290949 Category: Medical Plan: IFOB patient agrees to plan Orders: Orders IFOB ICT fecal occult bld 1 Week Z12.11 - Encounter for screening for malignant neoplasm of colon Coding Level of Care Code 24229 Est Pt Intermediate Comp History Detailed Exam Expanded Problem Focused Diagnoses Burn of second degree of left wrist, initial encounter T23.272A Screen for colon cancer Z12.11 <Electronically signed by Mauricio Lomax DO> 01/16/21 1740 Name Value Range Interpretation Code Description Data Ursula rce(s) Supporting Document(s) ID Date Data Source [id number] 01/10/2021 09:18:00 PM EDT [facility] ED Physician Documentation NAME: LYNDA MIRANDA : [birth year] AGE: 55 MR#: [id number] SERVICE DATE: 01/10/[address]: Hardy Peter DO PRIMARY CARE DR: Wu Mann MD (Glide) ROOM#: [facility] (Adult, General) General Chief Complaint: Skin/integument Stated [...] Surgical History (Updated 02/23/19 @ 11:59 by Cloudmach [place]) History of - surgery (Surgical) Teeth extraction [...] without blistering. 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 without focal deficit Psychiatric: [...] Peter DO SIGNATURE DA Report Cosigners: D: AYALA 01/10/212117 T: AYALA 01/10/212117 CC: Wu HORNER (Glide) Mackenzie Name Value Range Interpretation Code Description Data Ursula rce(s) Supporting Document(s) ID Date Data Source [id number] 01/05/2021 12:40:00 PM EDT [facility] Name Value Range Interpretation Code Description Data Ursula rce(s) Supporting Document(s) SARS-CoV-2 (COVID-19) RNA [Presence] in Respiratory specimen by DORIE with probe detection Not Detected [facility] This lab was ordered by [facility] and reported by [facility]. ID Date Data Source [id number] 12/12/2020 11:38:00 AM EDT [facility] Name: LYNDA MIRANDA : [birth year] Age: 54 MR#: [id number] Admit Date: 12/12/20 Provider: Caroline Davis MD [...] ice skating. Follows regularly (weekly currently) with Suze Covington seesher 1-4x/month depending on anxiety. Did not bring [...] did have TPI -no help) and surgery [facility] Medical History Acute upper respiratory infection Acute [...] WERE DONE PATIENT STATES PAIN IS A 7/10 PATIENT STATES HER ENTIRE BODY ACHES. PATIENT [...] Coronavirus Screening Have you traveled outside of [facility] or [facility] in the last 14 days.: No Has [...] M54.12 - Radiculopathy, cervical region SNOMED Code(s): 10805587 (Problem) Plan of care:: Cervical spine xrays d/w pt MRI not authorized at this time -will try to resubmit due to pts continued symptoms (2) Lumbar radiculopathy: Status: Chronic Problem priority:: Primary Diagnosis Code(s): M54.16 - Radiculopathy, lumbar region SNOMED Code(s): 572669754 (Problem) Plan of care:: L/S xrays discussed with patient -will try again to get MRI authorized at this time continue f/up with AQUILES/Laney Kowalski (3) Therapeutic drug monitoring: Status: Chronic Problem priority:: Primary Diagnosis Code(s): Z51.81 - Encounter for therapeutic drug level monitoring SNOMED Code(s): 459221153 (Problem) Plan of care:: Labwork reviewed -liver [...] - Pain in left hand SNOMED Code(s): 38626242 (Problem) Plan of care:: bilateral hand xrays reviewed with patient -no acute process of significant arthritis. most likely hand pain coming from her neck. Therapeutic Drug Monitoring Therapeutic Drug Monitoring: UDS up to date, Pain contract in place, ORT - Moderate risk, TECHN[employer]IAN [employer] CABLE EQUIPMENT checked prior to refills, Do not suspect [...] rce(s) Supporting Document(s) ID Date Data Source [id number] 12/11/2020 04:46:00 PM EDT [facility] [address] [place] [address] [phone] NAME SEX PT STATUS ACCOUNT NUMBER LYNDA RANGEL REG REF [id number] ORDERING PHYSICIAN LOCATION MEDICAL RECORD NO. Caroline Davis MD LAB [id number] ATTENDING PHYSICIAN DATE OF DATE OF EXAM/TIME Crystal Young REGULATORY AFFAIRS SPECIALIST 1965 12/11/201428 TYPE / EXAM Xray Lumbar [...] Medellin MD on 12/11/201647 Date Time CC: Crystalmelani ARANA Hector; Tara Medellin MD Techn: RADTC Trans Dt/Tm: Trans by: DT Prt Dt/Tm: [phone]: Total DLP = 0.00 mGy-cm Fluoroscopy Time (in secs): Name Value Range Interpretation Code Description Data Ursula rce(s) Supporting Document(s) ID Date Data Source [id number] 12/11/2020 02:56:00 PM EDT [facility] [address] [place] [address] [phone] NAME SEX PT STATUS ACCOUNT NUMBER NEGRITA DAVEYLYNDA Han Sherly REG REF [id number] ORDERING PHYSICIAN LOCATION MEDICAL RECORD NO. Caroline Davis MD LAB [id number] ATTENDING PHYSICIAN DATE OF DATE OF EXAM/TIME Crystal Young LIBORIO 1965 12/11/201429 TYPE / EXAM Xray Hand Complete RT [...] on 12/11/20 1610 Date Time CC: Crystal ARANA Hector; Tara Medellin MD Techn: RADTC Trans Dt/Tm: Trans by: DT Prt Dt/Tm: [phone]: Total DLP = 0.00 mGy-cm Fluoroscopy Time (in secs): Name Value Range Interpretation Code Description Data Ursula rce(s) Supporting Document(s) ID Date Data Source [id number] 12/11/2020 02:53:00 PM EDT [facility] [address] [place], [place] [address] [phone] NAME SEX PT STATUS ACCOUNT NUMBER LYNDA RANGEL REG REF [id number] ORDERING PHYSICIAN LOCATION MEDICAL RECORD NO. Caroline Davis MD LAB [id number] ATTENDING PHYSICIAN DATE OF DATE OF EXAM/TIME Cecelia Youngmelani CAPONE 1965 12/11/20 1401 TYPE / EXAM Xray Hand Complete LT [...] MD on 12/11/201453 Date Time CC: Crystal Young; Tara Medellin MD Techn: RADTC Trans Dt/Tm: Trans by: DT Prt Dt/Tm: [phone]: Total DLP = 0.00 mGy-cm Fluoroscopy Time (in secs): Name Value Range Interpretation Code Description Data Ursula rce(s) Supporting Document(s) ID Date Data Source [id number] 12/11/2020 02:33:00 PM EDT [facility] [address] [place] [address] [phone] NAME SEX PT STATUS ACCOUNT NUMBER LYNDA RANGEL REG REF [id number] ORDERING PHYSICIAN LOCATION MEDICAL RECORD NO. Caroline Davis MD LAB [id number] ATTENDING PHYSICIAN DATE OF DATE OF EXAM/TIME [...] Trans Dt/Tm: Trans by: DT Prt Dt/Tm: [phone]: Total DLP = 0.00 mGy-cm Fluoroscopy Time (in secs): Name Value Range Interpretation Code Description Data Ursula rce(s) Supporting Document(s) ID Date Data Source [id number] 12/11/2020 02:23:00 PM EDT [facility] Name Value Range Interpretation Code Description Data Ursula rce(s) Supporting Document(s) Urea nitrogen [Mass/volume] in Serum or Plasma 10 mg/dL 9-23 N [facility] Sodium [Moles/volume] in Serum or Plasma 143 mmol/L 132-146 N [facility] Potassium [Moles/volume] in Serum or Plasma 4.2 mmol/L 3.5-5.5 [facility] Chloride [Moles/volume] in Serum or Plasma 113 mmol/L 99-109 Above high normal [facility] Carbon dioxide, total [Moles/volume] in Serum or Plasma 26 mmol/L 20 -31 N [facility] Anion gap in Serum or Plasma 8 mmol/L 8-16 N [facility] Glucose [Mass/volume] in Serum or Plasma 96 mg/dL 74-106 N [facility] Creatinine 0.7 mg/dL 0.5-1.1 [facility] Glomerular filtration rate/1.73 sq M.pre dicted [Volume Rate/Area] in Serum or Plasma Greater Than 60 ABOVE 60 [facility] Alanine aminotransferase [Enzymatic acti vity/volume] in Serum or Plasma by With P-5'-P 15 U/L 10-49 N [facility] ital Aspartate aminotransferase [Enzymatic ac tivity/volume] in Serum or Plasma by With P-5'-P 12 U/L 0-33 N [facility] pital Alkaline phosphatase [Enzymatic activity/volume] in Serum or Plasma 122 U/L 45-129 N [facility] Calcium [Mass/volume] in Serum or Plasma 8.8 mg/dL 8.5-10.1 N [facility] Bilirubin.total [Mass/volume] in Serum or Plasma 0.3 mg/dL 0.3-1.2 N [facility] Albumin [Mass/volume] in Serum or Plasma by Bromocresol purple (BCP) dye binding method 3.4 g/dL 3.2-4.8 N [facility] ital Protein [Mass/volume] in Serum or Plasma 6.8 g/dL 5.7-8.2 N [facility] ID Date Data Source [id number] 12/08/2020 09:34:00 PM EDT [facility] PRESCRIBED DRUG 1: OXYCODONE Name Value Range Interpretation Code Description Data Ursula rce(s) Supporting Document(s) Medication prescribed [facility] MEDMATCH See scanned report [facility] ID Date Data Source [id number] 12/04/2020 02:11:00 PM EDT [facility] Name: LYNDA MIRANDA : [birth year] Age: 54 MR#: [id number] Admit Date: 12/04/20 Provider: Caroline Davis MD [...] today. Has not gotten any blood work [id number] due to her fear of needles. Has [...] did have TPI -no help) and surgery [facility] Medical History Acute upper respiratory infection Acute [...] NO CHANGES TO HEALTH HX OR MEDICATIONS. RX#[id number] PILL COUNT CORRECT. ALTHOUGH SHE DIDNT TAKE ANY PILLS FOR 5 DAYS HER COUNT IS RIGHT ON. UDS TODAY. DR DAVIS INTO EVALUATE PT. XRAY S ORDERED FOR HANDS AND BACK AND BLOOD WORK. PT TO RETURN NEXT WEEK TO GO OVER XRAYS. Patient has a Pain Management Agreement: Yes Marine Firefighter Required: No Is patient in pain?: Yes [...] Coronavirus Screening Have you traveled outside of [facility] or [facility] in the last 14 days.: No Has [...] M54.12 - Radiculopathy, cervical region SNOMED Code(s): 33766522 (Problem) Plan of care:: MRI not authorized at this time f/up dental as scheduled within the next few months will update cervical spine x-rays (2) Lumbar radiculopathy: Status: Chronic Problem priority:: Primary Diagnosis Code(s): M54.16 - Radiculopathy, lumbar region SNOMED Code(s): 809354374 (Problem) Plan of care:: MRI not authorized at this time -will update L/S xrays continue f/up with Parker Kowalski (3) Therapeutic drug monitoring: Status: Chronic Problem priority:: Primary Diagnosis Code(s): Z51.81 - Encounter for therapeutic drug level monitoring SNOMED Code(s): 356758982 (Problem) Plan of care:: Pt agreeable to [...] - Pain in left hand SNOMED Code(s): 96271131 (Problem) Plan of care:: pt with over one year h/o hand pain. no acute process. will get hand films to assess for degree of arthritis. Therapeutic Drug Monitoring Therapeutic Drug Monitoring: Pain contract in place, ORT - Moderate risk, Pill count corrrect, TECHNICIAN SU[employer] CABLE EQUIPMENT checked prior to refills, Current med dosing [...] rce(s) Supporting Document(s) ID Date Data Source [id number] 10/17/2020 02:06:00 PM [facility] Name: LYNDA MIRANDA : [birth year] Age: 54 MR#: [id number] Admit Date: 10/17/20 Provider: Caroline Davis MD [...] did have TPI -no help) and surgery [facility] Medical History Acute upper respiratory infection Acute [...] 4-6 WEEKS. MRI ORDERED LAST TIME, REORDERED. Marine Firefighter Required: No Accompanied by: Self / Same [...] M54.12 - Radiculopathy, cervical region SNOMED Code(s): 66004023 (Problem) Plan of care:: will check on status of MRI -consider surgical referral f/up dental as scheduled within the next few months (2) Lumbar radiculopathy: Status: Chronic Problem priority:: Primary Diagnosis Code(s): M54.16 - Radiculopathy, lumbar region SNOMED Code(s): 218539715 (Problem) Plan of care:: will check on MRI status and consider a surgical referral continue f/up with /Laney Kowalski (3) Therapeutic drug monitoring: Status: Chronic Problem priority:: Primary Diagnosis Code(s): Z51.81 - Encounter for therapeutic drug level monitoring SNOMED Code(s): 206057812 (Problem) Plan of care:: Percocet helping to manage pts pain. did not call for a refill and ran out. pt instructed to call for refills when needed. has failed multiple past treatments. MED 30. see below. Therapeutic Drug Monitoring Therapeutic Drug Monitoring: UDS up to date, Pain contract in place, ORT - Moderate risk, TECHNICIAN SUBM[employer] CABLE EQUIPMENT checked prior to refills, Do not suspect [...] Davis MD SIGNATURE DA Report Cosigners: D: [facility] 10/17/20 1406 T: [facility] 10/17/20 1406 CC: Name Value Range Interpretation Code Description Data Ursula rce(s) Supporting Document(s) ID Date Data Source [id number] 08/13/2020 11:33:00 AM [facility] PRESCRIBED DRUG 1: OXYCODONE Name Value Range Interpretation Code Description Data Ursula rce(s) Supporting Document(s) Medication prescribed [facility] MEDMATCH See scanned report [facility] ID Date Data Source [id number] 08/08/2020 03:14:00 PM [facility] Name: TIMNadyaPETAR LYNDA C : [birth year] Age: 54 MR#: [id number] Admit Date: 08/08/20 Provider: Caroline Davis MD [...] did have TPI -no help) and surgery [facility] Medical History Acute upper respiratory infection Acute [...] AND PAINFUL. PAIN 02/08. OCT REVIEWED. RX [id number] DUE 08/10 LEFT. SHE STATES SHE HASNT [...] Patient has a Pain Management Agreement: Yes Marine Firefighter Required: No Accompanied by: Self / Same [...] Coronavirus Screening Have you traveled outside of [facility] or [facility] in the last 14 days.: No Has [...] M54.12 - Radiculopathy, cervical region SNOMED Code(s): 69018773 (Problem) Plan of care:: will update MRI -consider surgical referral f/up dental as scheduled (2) Lumbar radiculopathy: Status: Chronic Problem priority:: Primary Diagnosis Code(s): M54.16 - Radiculopathy, lumbar region SNOMED Code(s): 644708934 (Problem) Plan of care:: will update MRI and consider a surgical referral continue f/up with (3) Therapeutic drug monitoring: Status: Chronic Problem priority:: Primary Diagnosis Code(s): Z51.81 - Encounter for therapeutic drug level monitoring SNOMED Code(s): 177364749 (Problem) Plan of care:: pt managing her pain with prn Percocet. has failed multiple past treatments. MED 30. Therapeutic Drug Monitoring Therapeutic Drug Monitoring: Pain contract in place, ORT - Moderate risk, TECHNICIAN SUBMAR[employer] CABLE EQUIPMENT checked prior to refills, Do not suspect [...] rce(s) Supporting Document(s) ID Date Data Source [id number] 06/20/2020 02:13:00 PM EDT [facility] Patient Name: LYNDA MIRANDA : 1965 Sex: F Pt Unit #: [id number] Location:[facility] Provider: Visit Date/Time: 06/20/20 Primary Insurance: [facility] Secondary Insurance: Self Pay Intake Vital Signs [...] the surgical procedure. 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 [...] nourished Orientation: alert, awake and oriented x3 HENMT Head: normal to inspection, normocephalic, atraumatic and [...] shot. Patient refuses to go to the service officer. Patient refuses mammogram at this time. Patient is going to the oral surgeon for dental problems. (2) Fibromyalgia affecting multiple sites: Status: Acute Code(s): M79.7 - Fibromyalgia SNOMED Code(s): 25719695 Category: Medical Plan - Jeannine Siddiqui NP: Continue to go to pain clinic. (3) Broken tooth with complication: Status: Acute SNOMED Code(s): 9909570 - Broken tooth with complication Category: Medical Plan - Jeannine Siddiqui REGULATORY AFFAIRS SPECIALIST: Follow up with oral surgeon. Go to ER if problems. Orders Follow Up: One year (annual exam) <Electronically signed by Jeannine Siddiqui NP> 06/22/20 0816 Name Value Range Interpretation Code Description Data Ursula rce(s) Supporting Document(s) Procedure Social History Code Duration Value Status Description Data Source(s ) 01/10/2021 09:28:59 PM EDT Yes completed Yes [facility] 01/10/2021 09:28:59 PM EDT No completed No [facility] 01/10/2021 09:28:59 PM EDT Current every day smoker co mpleted Current every day smoker [facility] 01/10/2021 09:28:59 PM EDT Yes completed Yes [facility] 01/10/2021 09:28:59 PM EDT No completed No [facility] 01/10/2021 09:28:59 PM EDT Current every day smoker co mpleted Current every day smoker [facility] 01/10/2021 09:28:59 PM EDT Yes completed Yes [facility] 01/10/2021 09:28:59 PM EDT No completed No [facility] 01/10/2021 09:28:59 PM EDT Current every day smoker co mpleted Current every day smoker [facility] Smoking 01/10/2021 09:28:00 PM EDT Current every day smoker co mpleted Current every day smoker [facility]
== END 2021-06-13 23:33 | disposition home or self-care (01) ==
LOC: M ED 16:58
DX: F43.0 Acute stress reaction (principal); R45.850 Homicidal ideations; F32.9 Major depressive disorder, single episode, unspecified; F90.9 Attention-deficit hyperactivity disorder, unspecified type; Z91.012 Allergy to eggs